=== PATIENT | female | born 1945 | race Two or more races ===

== ENCOUNTER 2019-10-16 20:11 | Emergency (ER) | payer MEDICARE ==
[2019-10-16 20:25] VITALS: TEMP 97.7
--- NOTE | 2019-10-16 20:51 | XR ---
EXAMINATION TYPE: XR ribs LT w pa chest xray DATE OF EXAM: 10/16/2019 COMPARISON: NONE HISTORY: Left-sided rib pain TECHNIQUE: 5 views FINDINGS: There is no heart failure nor confluent pneumonic infiltrate. There is minimal pleural thic kening at the lateral left lung base. There is no pleural effusion or pneumothorax. The left ribs serene ear intact. I see no rib fracture. IMPRESSION: Minimal pleural reaction at the left lung base. No fracture seen.
--- NOTE | 2019-10-16 20:56 | ED ---
Fall HPI - General Chief Complaint: Fall Stated Complaint: FALL Time Seen by Provider: 10/16/19 20:14 Source: patient, EMS Mode of arrival: EMS - History of Present Illness Initial Comments: Patient is a 73-year-old female, history of dementia, presenting to the emergency department after having a slip and fall at home. Patient states she was walking down a trailer and slipped and fell mostly onto her left side. Her only complaint is having left-sided rib pain. Patient states she did not hit her head, no LOC. She does not take thinners. She denies having upper extremit y or lower extremity pain. She does have mild dementia and is currently at baseline according to family. Patient denies any neck pain, chest pain, shortness of breath, abdominal pain. She denies any nausea or vomiting. Patient did have 4 mg of Zofran and 15 mg of Toradol and the EMS prior to arrival. She has no further complaints at this time. Upon arrival to the ER, her vital signs are stable. Review of Systems ROS Statement: Those systems with pertinent positive or pertinent negative responses have been documented in the HPI. ROS Other: All systems not noted in ROS Statement are negative. Past Medical History Past Medical History: Dementia, Hypertension History of Any Multi-Drug Resistant Organisms: None Reported Past Surgical History: Tonsillectomy Past Psychological History: No Psychological Hx Reported Smoking Status: Current some day smoker Past Alcohol Use History: Occasional Past Drug Use History: None Reported General Exam - General Exam Comments Initial Comments: GENERAL: Well-appearing, well-nourished and in no acute distress. HEAD: Atraumatic, normocephalic. EYES: Pupils equal round and reactive to light, extraocular movements intact, sclera anicteric, conjunctiva are normal. ENT: TMs normal, nares patent, oropharynx clear without exudates. Moist mucous membranes. NECK: Patient arrived in c-collar. No midline tenderness. C-collar was removed, full, pain-free range of motion. Supple without lymphadenopathy or JVD. LUNGS: Breath sounds clear to auscultation bilaterally and equal. No wheezes rales or rhonchi. Mild pain with palpation of the left lateral ribs. HEART: Regular rate and rhythm without murmurs, rubs or gallops. ABDOMEN: Soft, nontender, normoactive bowel sounds. No guarding, no rebound. No masses appreciated. : Deferred EXTREMITIES: No pain with palpation of the upper or lower extremities. Full, normal range of motion. No pitting or edema. No clubbing or cyanosis. NEUROLOGICAL: Cranial nerves II through XII grossly intact. Normal speech, normal gait. PSYCH: Normal mood, normal affect. SKIN: Warm, Dry, normal turgor, no rashes or lesions noted. Limitations: no limitations Course Vital Signs 10/16/19 10/16/19 20:13 21:09 Temperature 97.7 F 97.7 F Pulse Rate 96 72 Respiratory 17 18 Rate Blood Pressure 155/88 167/94 O2 Sat by Pulse 97 97 Oximetry Medical Decision Making - Medical Decision Making Patient is a 73-year-old female presenting after a slip and fall at her house. Her only complaint was left-sided rib pain. She did not hit her head, no LOC, no thinners. X-rays left ribs show no acute fractures, lungs appear normal. I discussed these findings with the patient and her and that this is most likely a rib contusion. She may use heat and/or ice the area as well as Tylenol or ibuprofen for discomfort. They are in agreement with this plan of care. She is stable for discharge. Return parameters were discussed with the patient and her and they both verbalized understanding. Case discussed with Dr. Brian pringle. Disposition Clinical Impression: Fall, Contusion of rib on left side Disposition: HOME SELF-CARE Condition: Stable Instructions (If sedation given, give patient instructions): Rib Contusion (ED) Additional Instructions: Please return to the Emergency Department if symptoms worsen or any other concerns. Use heat and/or ice to the area as well as Tylenol or ibuprofen for discomfort. Follow up with PCP if symptoms persist for more than 2-3 weeks. Is patient prescribed a controlled substance at d/c from ED?: No Referrals: Gallito Miller MD [Primary Care Provider] - 1-2 days
[2019-10-16 21:16] VITALS: BP 167/94; PULSE 72; RESP 18
== END 2019-10-16 21:19 | disposition home or self-care (01) ==
LOC: EC 20:11
DX: S20.212A Contusion of left front wall of thorax, initial encounter (principal); F17.200 Nicotine dependence, unspecified, uncomplicated; W01.0XXA Fall on same level from slipping, tripping and stumbling without subsequent striking against object, initial encounter; Y93.01 Activity, walking, marching and hiking; Y92.009 Unspecified place in unspecified non-institutional (private) residence as the place of occurrence of the external cause
CPT/HCPCS: 99283

== ENCOUNTER 2019-10-19 23:21 | Inpatient (IN) | payer MEDICARE ==
[2019-10-20 00:05] LABS: Basophils % (A) 0 %; Eosinophils % (A) 0 %; HGB 14.2 gm/dL (11.4-16.0); Lymphocytes # (A) 0.9 k/uL (1.0-4.8); Lymphocytes % (A) 7 %; MCH 30.1 pg (25.0-35.0); MCHC 32.3 g/dL (31.0-37.0); Mean Platelet Volume 9.1; Monocytes # (A) 0.8 k/uL (0-1.0); Monocytes % (A) 6 %; Neutrophils # (A) 11.1 k/uL (1.3-7.7); Neutrophils % (A) 85 %; Platelet Count 176 k/uL (150-450); RBC 4.72 m/uL (3.80-5.40); WBC 13.1 k/uL (3.8-10.6)
--- NOTE | 2019-10-20 00:06 | ED ---
General Adult HPI - General Chief complaint: Shortness of Breath Stated complaint: SHIMON, fever Time Seen by Provider: 10/19/19 23:51 Source: patient, family Mode of arrival: ambulatory Limitations: altered mental status - History of Present Illness Initial comments: This patient is a 73-year-old woman with history of some underlying dementia who presents to be evaluated for cough and fever. Most of the history comes from the patient's who states that over the past 2-3 days he has noted that his has developed a cough and also he notes a rattling sound to her breathing. Prior to this she had had a fall and struck the left side of her c hest wall, and was seen here related to that. In addition, the patient had developed a fever tonight to 101. The patient is currently denying pain and dyspnea. -: days(s) Location: chest Radiation: non-radiation Severity scale (1-10): 0 Improves with: none Worsens with: none Associated Symptoms: cough, fever/chills Treatments Prior to Arrival: NSAID - Related Data Allergies Allergy/AdvReac Type Severity Reaction Status Date / Time No Known Allergies Allergy Verified 10/19/19 23:31 Review of Systems ROS Statement: Those systems with pertinent positive or pertinent negative responses have been documented in the HPI. ROS Other: All systems not noted in ROS Statement are negative. Limitations: ROS unobtainable due to patients medical condition (Underlying dementia) Constitutional: Reports: as per HPI, fever Respiratory: Reports: cough. Denies: dyspnea, wheezes, hemoptysis Cardiovascular: Denies: chest pain, orthopnea, edema, syncope Gastrointestinal: Denies: abdominal pain, vomiting, diarrhea Genitourinary: Denies: dysuria Musculoskeletal: Denies: back pain Skin: Denies: rash Neurological: Denies: headache, weakness Past Medical History Past Medical History: Dementia, Hypertension History of Any Multi-Drug Resistant Organisms: None Reported Past Surgical History: Tonsillectomy Past Psychological History: No Psychological Hx Reported Smoking Status: Current some day smoker Past Alcohol Use History: Occasional Past Drug Use History: None Reported General Exam Limitations: altered mental status General appearance: alert, in no apparent distress Head exam: Present: atraumatic, normocephalic Eye exam: Present: normal appearance. Absent: scleral icterus, conjunctival injection ENT exam: Present: normal oropharynx Neck exam: Present: normal inspection, full ROM. Absent: meningismus Respiratory exam: Present: rhonchi. Absent: respiratory distress, wheezes, rales, stridor, accessory muscle use, decreased breath sounds, prolonged expiratory Cardiovascular Exam: Present: tachycardia, systolic murmur. Absent: diastolic murmur, rubs, gallop GI/Abdominal exam: Present: soft. Absent: distended, tenderness, guarding, rebound, rigid, mass Extremities exam: Present: normal inspection, normal capillary refill. Absent: pedal edema, calf tenderness Back exam: Present: normal inspection. Absent: CVA tenderness (R), CVA tenderness (L) Neurological exam: Present: alert Skin exam: Present: warm, dry, intact, normal color. Absent: rash Course Vital Signs 10/19/19 10/20/19 23:23 00:29 Temperature 98 F 98.2 F Pulse Rate 108 H 97 Respiratory 18 18 Rate Blood Pressure 162/80 134/82 O2 Sat by Pulse 94 L 95 Oximetry EKG Findings - EKG Results: EKG: interpreted by ERMMickey, sinus rhythm (With multiple PVCs, rate approximately 100 bpm), normal axis, normal QRS - Blocks, [place], Hypertrophy, ST Abn: Repolarization changes or abnormalities: nonspecific abnormality, ST segment, and/or T wave Medical Decision Making - Lab Data Result diagrams: 10/19/19 23:52 10/19/19 23:52 Lab Results 10/19/19 10/19/19 10/19/19 Range/Units 23:52 23:52 23:52 WBC 13.1 H (3.8-10.6) k/uL RBC 4.72 (3.80-5.40) m/uL Hgb 14.2 (11.4-16.0) gm/dL Hct 44.0 (34.0-46.0) % MCV 93.0 (80.0-100.0) fL MCH 30.1 (25.0-35.0) pg MCHC 32.3 (31.0-37.0) g/dL RDW 12.0 (11.5-15.5) % Plt Count 176 (150-450) k/uL Neutrophils % 85 % Lymphocytes % 7 % Monocytes % 6 % Eosinophils % 0 % Basophils % 0 % Neutrophils # 11.1 H (1.3-7.7) k/uL Lymphocytes # 0.9 L (1.0-4.8) k/uL Monocytes # 0.8 (0-1.0) k/uL Eosinophils # 0.0 (0-0.7) k/uL Basophils # 0.0 (0-0.2) k/uL PT 10.2 (9.0-12.0) sec INR 1.0 (<1.2) APTT 22.7 (22.0-30.0) sec Sodium 131 L (137-145) mmol/L Potassium 3.7 (3.5-5.1) mmol/L Chloride 103 (98-107) mmol/L Carbon Dioxide 21 L (22-30) mmol/L Anion Gap 7 mmol/L BUN 14 (7-17) mg/dL Creatinine 0.63 (0.52-1.04) mg/dL Est GFR (CKD-EPI)AfAm >90 (>60 ml/min/1.73 sqM) Est GFR (CKD-EPI)NonAf 90 (>60 ml/min/1.73 sqM) Glucose 153 H (74-99) mg/dL Plasma Lactic Acid Vick (0.7-2.0) mmol/L Calcium 8.8 (8.4-10.2) mg/dL Total Bilirubin 1.7 H (0.2-1.3) mg/dL AST 42 H (14-36) U/L ALT 35 H (4-34) U/L Alkaline Phosphatase 95 (38-126) U/L Troponin I (0.000-0.034) ng/mL NT-Pro-B Natriuret Pep pg/mL Total Protein 6.3 (6.3-8.2) g/dL Albumin 3.4 L (3.5-5.0) g/dL 10/19/19 10/19/19 10/19/19 Range/Units 23:52 23:52 23:52 WBC (3.8-10.6) k/uL RBC (3.80-5.40) m/uL Hgb (11.4-16.0) gm/dL Hct (34.0-46.0) % MCV (80.0-100.0) fL MCH (25.0-35.0) pg MCHC (31.0-37.0) g/dL RDW (11.5-15.5) % Plt Count (150-450) k/uL Neutrophils % % Lymphocytes % % Monocytes % % Eosinophils % % Basophils % % Neutrophils # (1.3-7.7) k/uL Lymphocytes # (1.0-4.8) k/uL Monocytes # (0-1.0) k/uL Eosinophils # (0-0.7) k/uL Basophils # (0-0.2) k/uL PT (9.0-12.0) sec INR (<1.2) APTT (22.0-30.0) sec Sodium (137-145) mmol/L Potassium (3.5-5.1) mmol/L Chloride (98-107) mmol/L Carbon Dioxide (22-30) mmol/L Anion Gap mmol/L BUN (7-17) mg/dL Creatinine (0.52-1.04) mg/dL Est GFR (CKD-EPI)AfAm (>60 ml/min/1.73 sqM) Est GFR (CKD-EPI)NonAf (>60 ml/min/1.73 sqM) Glucose (74-99) mg/dL Plasma Lactic Acid Vick 1.0 (0.7-2.0) mmol/L Calcium (8.4-10.2) mg/dL Total Bilirubin (0.2-1.3) mg/dL AST (14-36) U/L ALT (4-34) U/L Alkaline Phosphatase (38-126) U/L Troponin I <0.012 (0.000-0.034) ng/mL NT-Pro-B Natriuret Pep 753 pg/mL Total Protein (6.3-8.2) g/dL Albumin (3.5-5.0) g/dL Disposition Clinical Impression: Pneumonia, Delirium, Pleural effusion Disposition: ADMITTED IP TO THIS HOSP Condition: Fair Is patient prescribed a controlled substance at d/c from ED?: No Referrals: Gallito Miller MD [Primary Care Provider] - 1-2 days
[2019-10-20 00:15] LABS: Partial Thromboplastin Time 22.7 sec (22.0-30.0); Prothrombin Time 10.2 sec (9.0-12.0)
[2019-10-20 00:18] LABS: ALT 35 U/L (4-34); AST 42 U/L (14-36); African American GFR (CKD) >90 (>60 ml/min/1.73 sqM); Albumin 3.4 g/dL (3.5-5.0); Alkaline Phosphatase 95 U/L (38-126); Anion Gap 7 mmol/L; Blood Urea Nitrogen 14 mg/dL (7-17); Calcium 8.8 mg/dL (8.4-10.2); Carbon Dioxide 21 mmol/L (22-30); Chloride 103 mmol/L (98-107); Glucose 153 mg/dL (74-99); Non-African American GFR(CKD) 90 (>60 ml/min/1.73 sqM); Potassium 3.7 mmol/L (3.5-5.1); Sodium 131 mmol/L (137-145); Total Bilirubin 1.7 mg/dL (0.2-1.3); Total Protein 6.3 g/dL (6.3-8.2)
--- NOTE | 2019-10-20 00:34 | XR ---
EXAMINATION TYPE: XR chest 2V DATE OF EXAM: 10/20/2019 COMPARISON: 10/16/2019 HISTORY: Difficulty breathing TECHNIQUE: 2 views FINDINGS: There is some blunting left costophrenic angle. There is coarsening of interstitial marking s. Heart size is normal. Thoracic aorta is atheromatous. There are no hilar masses. There is osteopen ia. There is no gross heart failure. IMPRESSION: There is increased pleural reaction and fluid and subsegmental atelectasis at the left anahy ng base compared to old exam 4 days ago. No heart failure seen. There is probably some pulmonary fibr osis.
[2019-10-20] MEDS ORDERED: PNEUMONIA PROTOCOL UTILIZED 1 EACH MISC PO PRN (01:42)
[2019-10-20] MEDS ORDERED: AZITHROMYCIN 500 MG in SODIUM CHLORIDE 0.9% 250 ML IVPB STA (01:42)
[2019-10-20] MEDS: SODIUM CHLORIDE 0.9% 1,000 ML IV SCH ×3 (02:41→17:35)
[2019-10-20] MEDS: BUDESONIDE 1 MG/2 ML NEBU INHALATION SCH ×2 (12:26→19:41)
[2019-10-20] MEDS: IPRATROPIUM-ALBUTEROL 3 ML NEB INHALATION SCH ×4 (12:26→23:55)
[2019-10-20] MEDS: NICOTINE 14MG/24HR PATCH TRANSDERM SCH (13:06)
[2019-10-20] MEDS: guaiFENesin 600 MG TABLET.ER PO SCH ×2 (13:06→21:11)
[2019-10-20] MEDS: ENOXAPARIN 40 MG/0.4 ML SYRINGE SQ SCH (13:06)
[2019-10-20] MEDS ORDERED: CALCIUM CARBONATE 500 MG CHEWABLE PO PRN (16:26)
[2019-10-20] MEDS ORDERED: MAGNESIUM HYDROXIDE 2,400 MG/10 ML CUP PO PRN (16:26)
[2019-10-20] MEDS ORDERED: ONDANSETRON 4 MG/2 ML VIAL IVP PRN (16:26)
[2019-10-20] MEDS ORDERED: NALOXONE 0.4 MG/ML 1 ML VIAL IV PRN (16:26)
[2019-10-20] MEDS ORDERED: LACTULOSE 20 GM/30 ML CUP PO PRN (16:26)
[2019-10-20] MEDS ORDERED: MAG HYDROX/AL HYDROX/SIMETH 30 ML CUP PO PRN (16:26)
--- NOTE | 2019-10-20 16:29 | P.HPIM ---
History of Present Illness H&P Date: 10/20/19 Chief Complaint: Chest gurgling History of presenting complaint: This is a 73-year-old patient of Dr. Gallito Miller. Most of the history is obtained by the at the bedside. Patient has dementia and only offer so much of the history. Able to recognize family members. Able to get around the house. Patient is a long-standing smoker. The last to 3 days noticed that the patient was having congestion in the chest. With some gurgling sound. Unable to expectorate. The cough is present. 2 feeding was present. Some wheezing. Decreased appetite. Found to have a pneumonia in the ER. Started antibiotics. Patient doesn't take any medications at home Review of systems: GEN.: Tired decreased appetite EYES: None HEENT: None NECK: None RESPIRATORY: As above CARDIOVASCULAR: None GASTROINTESTINAL: None GENITOURINARY: None MUSCULOSKELETAL: None LYMPHATICS: None HEMATOLOGICAL: None PSYCHIATRY: Forgetful NEUROLOGICAL: None Past medical history to include: Dementia, hypertension Social history: Lives with her . Long-standing smoker. Alcohol occasionally. Family history: Patient does not remember Physical examination: VITAL SIGNS: 98, 108, 18, 162/80, 94% on room air GENERAL: 29.9, laying in bed awake. EYES: Pupils equal. Conjunctiva normal. HEENT: External appearance of nose and ears normal, oral cavity grossly normal. NECK: JVD not raised; masses not palpable. HEART: First and second heart sounds are normal; no edema. LUNGS:[ Respiratory rate increased, decreased breaths on some exploring crackles wheezing. ABDOMEN: Soft, nontender, liver spleen not palpable, no masses palpable. PSYCH: [Patient nose and nails does not know where she is otherwise she is here able to answer simple questions. NEUROLOGICAL: Cranial nerves grossly intact; no facial asymmetry, power and sensation grossly intact. LYMPHATICS: No lymph nodes palpable in the axilla and neck INVESTIGATIONS, reviewed in the clinical context: White count 13.1 hemoglobin 14.2 potassium 3.7 creatinine 0.63 sodium 131 Troponin I 0.012 proBNP 753 Albumin 3.4 EKG tracing personally reviewed by me-normal sinus rhythm with some PVCs Chest x-ray film personally reviewed by me-infiltrates, chronic changes cannot be ruled out Assessment: -Pneumonia suspect gram-negative organism, POA -Acute COPD exacerbation and a current smoker -Chronic nicotine dependence patient's cigarette smoker -Sepsis from pneumonia -Severe cognitive impairment from Alzheimer's dementia -Mild hyponatremia -Hypoalbuminemia has an acute phase reactant no clinical evidence of malnutrition -Essential hypertension Plan: Care was discussed at length with the at the bedside. Patient started on ceftriaxone and Zithromax. Lovenox for DT prophylaxis. DuoNeb, inhaled Pulmicort and IV Solu-Medrol. Nicotine patch. IV fluids. We'll add lisinopril hydrochlorothiazide twice a day. Past Medical History Past Medical History: Dementia, Hypertension History of Any Multi-Drug Resistant Organisms: None Reported Past Surgical History: Tonsillectomy Past Anesthesia/Blood Transfusion Reactions: No Reported Reaction Past Psychological History: No Psychological Hx Reported Smoking Status: Current some day smoker Past Alcohol Use History: Occasional Past Drug Use History: None Reported Medications and Allergies Home Medications Medication Instructions Recorded Confirmed Type No Known Home Medications 10/20/19 10/20/19 History Allergies Allergy/AdvReac Type Severity Reaction Status Date / Time No Known Allergies Allergy Verified 10/20/19 08:28 Physical Exam Vitals: Vital Signs Temp Pulse Pulse Resp BP BP Pulse Ox 10/20/19 09:42 98.1 F 89 16 151/70 97 10/20/19 04:20 98.2 F 96 20 144/77 95 10/20/19 02:46 98.4 F 107 H 19 158/94 94 L 10/20/19 00:29 98.2 F 97 18 134/82 95 10/19/19 23:23 98 F 108 H 18 162/80 94 L Intake and Output 10/19/19 10/20/19 10/20/19 22:59 06:59 14:59 Other: Weight 83.915 kg Results CBC & Chem 7: 10/19/19 23:52 10/19/19 23:52 Labs: Abnormal Lab Results - Last 24 Hours (Table) 10/19/19 10/19/19 Range/Units 23:52 23:52 WBC 13.1 H (3.8-10.6) k/uL Neutrophils # 11.1 H (1.3-7.7) k/uL Lymphocytes # 0.9 L (1.0-4.8) k/uL Sodium 131 L (137-145) mmol/L Carbon Dioxide 21 L (22-30) mmol/L Glucose 153 H (74-99) mg/dL Total Bilirubin 1.7 H (0.2-1.3) mg/dL AST 42 H (14-36) U/L ALT 35 H (4-34) U/L Albumin 3.4 L (3.5-5.0) g/dL Thrombosis Risk Factor Assmnt - Choose All That Apply Any of the Below Risk Factors Present?: No Each Risk Factor Represents 2 Points: Age 61-74 years Thrombosis Risk Factor Assessment Total Risk Factor Score: 2 Thrombosis Risk Factor Assessment Level: Low Risk
[2019-10-20 17:10] LABS: Glucose,Whole Blood 116 mg/dL (75-99)
[2019-10-20] MEDS: INSULIN ASPART (NovoLOG) 100 UNIT/ML VIAL SQ SCH (17:30)
[2019-10-20] MEDS: methylPREDNISolone SOD SUCCI 40 MG/ML 1 ML VIAL IV SCH ×2 (17:34→23:20)
[2019-10-20 20:36] LABS: Glucose,Whole Blood 163 mg/dL (75-99)
[2019-10-20] MEDS: ACETAMINOPHEN TAB 325 MG TAB PO PRN (21:11)
[2019-10-20] MEDS: MELATONIN 3 MG TABLET PO PRN (21:11)
[2019-10-20] MEDS: AZITHROMYCIN 500 MG TAB PO SCH (21:11)
[2019-10-20] MEDS: ALPRAZolam 0.25 MG TAB PO PRN (21:11)
[2019-10-21] MEDS: IPRATROPIUM-ALBUTEROL 3 ML NEB INHALATION SCH ×6 (03:41→23:47)
[2019-10-21] MEDS: guaiFENesin 600 MG TABLET.ER PO SCH ×2 (07:30→20:47)
[2019-10-21] MEDS: NICOTINE 14MG/24HR PATCH TRANSDERM SCH (07:31)
[2019-10-21] MEDS: SODIUM CHLORIDE 0.9% 1,000 ML IV SCH (07:31)
[2019-10-21] MEDS: methylPREDNISolone SOD SUCCI 40 MG/ML 1 ML VIAL IV SCH ×3 (07:31→23:28)
[2019-10-21] MEDS: ENOXAPARIN 40 MG/0.4 ML SYRINGE SQ SCH (07:31)
[2019-10-21 07:53] LABS: Glucose,Whole Blood 152 mg/dL (75-99)
[2019-10-21] MEDS: INSULIN ASPART (NovoLOG) 100 UNIT/ML VIAL SQ SCH ×3 (07:59→16:54)
[2019-10-21] MEDS: BUDESONIDE 1 MG/2 ML NEBU INHALATION SCH ×2 (08:14→21:08)
[2019-10-21 09:24] LABS: AST 31 U/L (14-36); African American GFR (CKD) >90 (>60 ml/min/1.73 sqM); Albumin 3.2 g/dL (3.5-5.0); Alkaline Phosphatase 88 U/L (38-126); Anion Gap 8 mmol/L; Blood Urea Nitrogen 16 mg/dL (7-17); Calcium 8.7 mg/dL (8.4-10.2); Carbon Dioxide 23 mmol/L (22-30); Chloride 107 mmol/L (98-107); Glucose 253 mg/dL (74-99); Non-African American GFR(CKD) >90 (>60 ml/min/1.73 sqM); Potassium 3.9 mmol/L (3.5-5.1); Sodium 138 mmol/L (137-145); Total Bilirubin 0.9 mg/dL (0.2-1.3); Total Protein 6.1 g/dL (6.3-8.2)
[2019-10-21 09:38] LABS: ALT 49 U/L (4-34)
--- NOTE | 2019-10-21 11:48 | P.PN ---
Subjective on-call hospitalist covering for Dr. mahan From records This is a 73-year-old patient of Dr. Gallito Miller. Most of the history is obtained by the at the bedside. Patient has dementia and only offer so much of the history. Able to recognize family members. Able to get around the house. Patient is a long-standing smoker. The last to 3 days noticed that the patient was having congestion in the chest. With some gurgling sound. Unable to expectorate. The cough is present. 2 feeding was present. Some wheezing. Decreased appetite. Found to have a pneumonia in the ER. Started antibiotics. Patient doesn't take any medications at home Subjective 10/21/2019 patient was sitting in chair not in distress, she can talk freely with no difficulty. However patient scan of poor historian due to her dementia and I talked to the daughter Mrs. Kamara at bedside. Patient admitted with respiratory symptoms and she still complaining of from cough and with little mucousy phlegm and left lateral chest pain increased with coughing. No dyspnea at rest.she is saturating 90s on 2 L oxygen. No other complaints. She smokes about 1 pack per day, patient is counseled and she does not want to quit however she is getting nicotine patch while she is in- house. No alcohol or illicit drugs. Patient states that she fell a few days ago while she was walking out side in [place] whether, no dizziness or syncope. we will order left rib x-ray. Pulmonary team already consulted. Patient is currently on Zithromax and Rocephin and she is on normal saline at 50 mL per hour. We will order physical therapy evaluation Review of systems CONSTITUTIONAL: No fever, no malaise, no fatigue. HEENT: No recent visual problems or hearing problems. Denied any sore throat. CARDIOVASCULAR: No orthopnea, PND, no palpitations, no syncope. GASTROINTESTINAL: No diarrhea, no nausea, no vomiting, no abdominal pain. Normoactive bowel sounds. NEUROLOGICAL: No headaches, no weakness, no numbness. HEMATOLOGICAL: Denies any bleeding or petechiae. GENITOURINARY: Denies any burning micturition, frequency, or urgency. MUSCULOSKELETAL/RHEUMATOLOGICAL: Denies any joint pain, swelling, or any muscle pain. ENDOCRINE: Denies any polyuria or polydipsia. Active Medications Generic Name Dose Route Start Last Admin Trade Name Zackeryq PRN Reason Stop Dose Admin Acetaminophen 650 mg 10/20/19 16:26 10/20/19 21:11 Tylenol Tab PO 650 mg Q6HR PRN Administration Mild Pain or Fever > 100.5 Al Hydroxide/Mg Hydroxide 15 ml 10/20/19 16:26 Maalox PO Q6HR PRN Indigestion Albuterol/Ipratropium 3 ml 10/20/19 12:00 10/21/19 11:21 Duoneb 0.5 Mg-3 Mg/3 Ml Soln INHALATION 3 ml RT-Q4H PHYLICIA Administration Alprazolam 0.25 mg 10/20/19 16:26 10/20/19 21:11 Xanax PO 0.25 mg Q6HR PRN Administration Anxiety Azithromycin 500 mg 10/20/19 21:00 10/20/19 21:11 Zithromax PO 500 mg Q24H PHYLICIA Administration Budesonide 1 mg 10/20/19 11:56 10/21/19 08:14 Pulmicort INHALATION 1 mg RT-BID PHYLICIA Administration Calcium Carbonate/Glycine 1,000 mg 10/20/19 16:26 Tums PO Q4HR PRN Dyspepsia Enoxaparin Sodium 40 mg 10/20/19 12:00 10/21/19 07:31 Lovenox SQ 40 mg DAILY PHYLICIA Administration Guaifenesin 1,200 mg 10/20/19 12:00 10/21/19 07:30 Mucinex PO 1,200 mg Q12HR PHYLICIA Administration Ceftriaxone Sodium 1 gm/ 50 mls @ 100 mls/hr 10/20/19 12:00 10/21/19 07:30 Sodium Chloride IVPB 10/24/19 12:01 100 mls/hr Q24HR PHYLICIA Administration Sodium Chloride 1,000 mls @ 50 mls/hr 10/20/19 16:30 10/21/19 07:31 Saline 0.9% IV 50 mls/hr .Q20H PHYLICIA Administration Insulin Aspart 0 unit 10/20/19 17:30 10/21/19 07:59 Novolog SQ 1 unit AC-TID PHYLICIA Administration Protocol Lactulose 20 gm 10/20/19 16:26 Cephulac PO DAILY PRN Constipation Magnesium Hydroxide 2,400 mg 10/20/19 16:26 Milk Of Magnesia PO DAILY PRN Constipation Melatonin 3 mg 10/20/19 16:26 10/20/19 21:11 Melatonin PO 3 mg HS PRN Administration Insomnia Methylprednisolone Sodium Succinate 40 mg 10/20/19 16:30 10/21/19 07:31 Solu-Medrol IV 40 mg Q8HR PHYLICIA Administration Miscellaneous Information 1 each 10/20/19 01:42 Pneumonia Protocol Utilized PO ONCE PRN Per Protocol Naloxone HCl 0.2 mg 10/20/19 16:26 Narcan IV Q2M PRN Opioid Reversal Nicotine 1 patch 10/20/19 12:00 10/21/19 07:31 Habitrol 14mg/24hr Patch TRANSDERM 1 patch DAILY PHYLICIA Administration Ondansetron HCl 4 mg 10/20/19 16:26 Zofran IVP Q8HR PRN Nausea And Vomiting Objective - Vital Signs Vital signs: Vital Signs Temp 98.0 F 10/21/19 07:00 Pulse 78 10/21/19 11:35 Resp 20 10/21/19 07:30 BP 138/71 10/21/19 07:00 Pulse Ox 94 L 10/21/19 07:00 Intake & Output 10/20/19 10/21/19 10/21/19 18:59 06:59 18:59 Weight 73.5 kg Other: Voiding Method Toilet # Voids 6 1 - Exam GENERAL: The patient is alert and oriented x3, not in any acute distress. Well developed, well nourished. HEENT: Pupils are round and equally reacting to light. EOMI. No scleral icterus. No conjunctival pallor. Normocephalic, atraumatic. No pharyngeal erythema. No thyromegaly. CARDIOVASCULAR: S1 and S2 present. No murmurs, rubs, or gallops. -PULMONARY: Chest is clear to auscultation, no wheezing or crackles. left lateral side crepitation ABDOMEN: Soft, nontender, nondistended, normoactive bowel sounds. No palpable organomegaly. MUSCULOSKELETAL: No joint swelling or deformity. EXTREMITIES: No cyanosis, clubbing, or pedal edema. NEUROLOGICAL: Gross neurological examination did not reveal any focal deficits. SKIN: No rashes. no petechiae. - Labs CBC & Chem 7: 10/19/19 23:52 10/21/19 08:44 Labs: Abnormal Lab Results - Last 24 Hours (Table) 10/20/19 10/20/19 10/21/19 Range/Units 17:08 20:25 07:51 Glucose (74-99) mg/dL POC Glucose (mg/dL) 116 H 163 H 152 H (75-99) mg/dL ALT (4-34) U/L Total Protein (6.3-8.2) g/dL Albumin (3.5-5.0) g/dL 10/21/19 Range/Units 08:44 Glucose 253 H (74-99) mg/dL POC Glucose (mg/dL) (75-99) mg/dL ALT 49 H (4-34) U/L Total Protein 6.1 L (6.3-8.2) g/dL Albumin 3.2 L (3.5-5.0) g/dL Microbiology - Last 24 Hours (Table) 10/19/19 23:52 Blood Culture - Preliminary Blood No Growth after 24 hours Assessment and Plan Assessment: -Pneumonia suspect gram-negative organism, POA -fall, few days ago with left sided chest pain. Rule out rib fracture -mildAcute COPD exacerbation and a current smoker -Chronic nicotine dependence patient's cigarette smoker -Sepsis from pneumonia. Patient needs 3 of SIRS criteriawith leukocytosis, tachypnea and tachycardia -Alzheimer's dementia. -Mild hyponatremia, improved -Hypoalbuminemia has an acute phase reactant no clinical evidence of malnutrition -Essential hypertension Plan: this is a pleasant 73 years old female who presents with pneumonia. Patient started on ceftriaxone and Zithromax. Lovenox for DT prophylaxis. DuoNeb, inhaled Pulmicort and IV Solu-Medrol. Nicotine patch. IV fluids. We'll add lisinopril hydrochlorothiazide twice a day. pulmonary consult Labs and medication were reviewed.. Continue same treatment. Continue with symptomatic treatment. Resume home medication. Monitor lytes and vitals. DVT and GI prophylaxis. Further recommendations of the clinical course of the patient DVT prophylaxis: Subcutaneous Lovenox GI Prophylaxis: Pepcid PT/OT: Pending Prognosis is guarded
[2019-10-21 11:49] LABS: Glucose,Whole Blood 165 mg/dL (75-99)
--- NOTE | 2019-10-21 15:25 | XR ---
EXAMINATION TYPE: Left rib series DATE OF EXAM: 10/21/2019 COMPARISON: NONE HISTORY: 73-year-old female with fall a few days ago, pain TECHNIQUE: 4 views FINDINGS: Multiple left lateral rib fractures are present. Segmental fractures involving posterior and lateral fifth, sixth, seventh, eighth, and ninth ribs. Additional lateral fractures of the third and fourth r ibs. There is very mild displacement and mild angulation. IMPRESSION: 1. Segmental fractures of the left fifth through ninth ribs. This is at 5 consecutive levels which wo uld qualify as flail chest. 2. Additional fractures of the left lateral third and fourth ribs. 3. Small pleural effusion versus pneumothorax with prominent left basilar atelectasis or contusion/in filtrate. A [place] level critical message alert has been initiated for Darian Sheet via the [employer] Results System on 10/21/2019 3:22 PM. This message alert has been sent to Darian Sheet via the preferences provided by the clinician for the receipt of Radiology Critical Findings. Message ID [id number].
[2019-10-21 15:59] LABS: Basophils % (A) 0 %; Eosinophils % (A) 0 %; HCT 45.5 % (34.0-46.0); Hypochromasia Slight; Lymphocytes # (A) 0.9 k/uL (1.0-4.8); Lymphocytes % (A) 11 %; MCH 30.4 pg (25.0-35.0); MCHC 30.8 g/dL (31.0-37.0); Mean Platelet Volume 10.5; Monocytes # (A) 0.2 k/uL (0-1.0); Monocytes % (A) 2 %; Neutrophils # (A) 6.4 k/uL (1.3-7.7); Neutrophils % (A) 86 %; Platelet Count 176 k/uL (150-450); RBC 4.61 m/uL (3.80-5.40); RDW 12.1 % (11.5-15.5); WBC 7.4 k/uL (3.8-10.6)
--- NOTE | 2019-10-21 16:01 | P.CNPUL ---
History of Present Illness Consult date: 10/21/19 Reason for consult: dyspnea, cough, chest pain Chief complaint: Shortness of breath and left-sided chest pain History of present illness: This is a 73-year-old female with the COPD and extensive history of smoking and nicotine use has been actively smoking half to one third pack per day L Que the time she was admitted, she sees Dr. Bullock for primary care activity, patient's family including and daughter is present at the bedside, unable to give detailed history however data has been obtained from the chart and as well as the and daughter patient tripped and fell down and landed on the left side of the chest and brought into the emergency department, initial x-ray revealed presence of subsegmental atelectasis at the left lung base, some early pulmonary fibrosis is noted, possibly developing left lower lobe pneumonia cannot be excluded, today's reviewed chest x-ray has been reviewed, patient noted to have multiple fractures from left fifth to ninth rib, additional third and fourth lateral fractures also noted along with some effusion and atelectasis and developing pneumonia, patient is on 2 L oxygen, saturation is 98%, hemodynamic stable remains afebrile, white cell count is 13,000, her carona virus test is negative, she is being treated with the bronchodilators along with antibiotics, deep breathing exercises incentive spirometry, also getting IV steroids Review of Systems All systems: negative Past Medical History Past Medical History: Dementia, Hypertension History of Any Multi-Drug Resistant Organisms: None Reported Past Surgical History: Tonsillectomy Past Anesthesia/Blood Transfusion Reactions: No Reported Reaction Past Psychological History: No Psychological Hx Reported Smoking Status: Current some day smoker Past Alcohol Use History: Occasional Past Drug Use History: None Reported Medications and Allergies Home Medications Medication Instructions Recorded Confirmed Type No Known Home Medications 10/20/19 10/20/19 History Allergies Allergy/AdvReac Type Severity Reaction Status Date / Time No Known Allergies Allergy Verified 10/20/19 08:28 Physical Exam Vitals: Vital Signs Temp Pulse Pulse Resp BP Pulse Ox 10/21/19 15:00 97.8 F 93 17 146/67 98 10/21/19 11:35 78 10/21/19 11:24 77 10/21/19 08:32 72 10/21/19 08:14 70 10/21/19 07:30 70 20 10/21/19 07:00 98.0 F 103 H 20 138/71 94 L 10/21/19 01:00 97.9 F 70 20 144/74 96 10/20/19 19:54 98.7 F 88 16 147/72 92 L 10/20/19 19:30 78 Intake and Output 10/21/19 10/21/19 10/21/19 06:59 14:59 22:59 Intake Total 980 Balance 980 Intake: Intake, IV Titration 400 Amount Sodium Chloride 0.9% 1, 400 000 ml @ 50 mls/hr IV . Q20H [facility] Rx#:[id number] Oral 580 Other: Voiding Method Toilet # Voids 1 2 Weight 73.5 kg - Constitutional General appearance: average body habitus, cooperative, disheveled, mild distress - EENT Eyes: anicteric sclerae, EOMI, PERRLA, normal appearance ENT: hearing grossly normal, normal oropharynx Ears: bilateral: normal - Neck Neck: normal ROM Carotids: bilateral: upstroke normal - Respiratory Respiratory: bilateral: diminished, rales (At the left base) - Cardiovascular Rhythm: regular Heart sounds: normal: S1, S2 - Gastrointestinal General gastrointestinal: decreased bowel sounds - Integumentary Integumentary: normal turgor - Neurologic Neurologic: CNII-XII intact - Musculoskeletal Musculoskeletal: gait normal, generalized weakness, strength equal bilaterally - Psychiatric Psychiatric: A&O x's 3, appropriate affect, intact judgment & insight Results - Laboratory Findings CBC and BMP: 10/19/19 23:52 10/21/19 08:44 PT/INR, D-dimer PT 10.2 sec (9.0-12.0) 10/19/19 23:52 INR 1.0 (<1.2) 10/19/19 23:52 Abnormal lab findings: Abnormal Labs 10/19/19 10/19/19 10/20/19 23:52 23:52 17:08 WBC 13.1 H Neutrophils # 11.1 H Lymphocytes # 0.9 L Sodium 131 L Carbon Dioxide 21 L Glucose 153 H POC Glucose (mg/dL) 116 H Total Bilirubin 1.7 H AST 42 H ALT 35 H Total Protein Albumin 3.4 L 10/20/19 10/21/19 10/21/19 20:25 07:51 08:44 WBC Neutrophils # Lymphocytes # Sodium Carbon Dioxide Glucose 253 H POC Glucose (mg/dL) 163 H 152 H Total Bilirubin AST ALT 49 H Total Protein 6.1 L Albumin 3.2 L 10/21/19 11:48 WBC Neutrophils # Lymphocytes # Sodium Carbon Dioxide Glucose POC Glucose (mg/dL) 165 H Total Bilirubin AST ALT Total Protein Albumin - Diagnostic Findings Chest x-ray: report reviewed, image reviewed (Finding as noted above) Assessment and Plan Assessment: Status post fall with multiple rib fractures on the left side involving third fourth laterally as well as fifth to ninth rib, Left lower lobe atelectasis Left lower lobe developing pneumonia Small left-sided pleural effusion Baseline severe COPD Advanced dementia and Alzheimer's disease Smoking and nicotine use Plan: Continue supplemental oxygen Continue deep breathing exercise incentive spirometry Increase activity as tolerated Continue bronchodilator, IV steroids, broad-spectrum antibiotics Repeat chest x-ray in 24 to 48 hours Further recommendations pending plan of care as per clinical response of the patient Time with Patient: Greater than 30
[2019-10-21] MEDS: ACETAMINOPHEN TAB 325 MG TAB PO PRN (16:02)
[2019-10-21 16:40] LABS: Glucose,Whole Blood 140 mg/dL (75-99)
[2019-10-21 16:42] LABS: MCV 98.7 fL (80.0-100.0)
--- NOTE | 2019-10-21 17:46 | P.GSCN ---
History of Present Illness Consult date: 10/21/19 Reason for Consult: Fall from standing on 10/16/2019 with left-sided rib fractures and possible flail chest. Requesting physician: Darian E Sheet History of present illness: This is a 73-year-old female patient who is followed by Dr. Gallito Miller on an outpatient basis. She has a past medical history significant for dementia, hypertension, chronic ongoing tobacco dependence and history of early onset coronary artery disease with her dad having a myocardial infarction at age 48. Due to the patient's dementia and her history has been obtained from the patient's who is sitting at her bedside. According to the patient's on 10/16/2019 his was walking down some stairs going outside when she tripped and fell and landed on her left side on cement. He reports that she did not hit her head. She presented to the emergency department on 10/16/2019 with left-sided chest pain, underwent a chest x-ray which demonstrated minimal pleural reaction at her left lung base with no fracture seen. She was subsequently sent home with medical management and pain control. On the evening of 10/19/2019 the patient was brought back to the emergency department here at [facility] with complaints of cough, fever, left-sided chest wall pain and some rattling with her breathing. The patient denies any complaints of pain, shortness of breath, hemoptysis, chills, headache or sputum production at this time. A chest x-ray was completed yesterday 10/20/2019 which showed increase pleural reaction, fluid and segmental atelectasis at the left lung base compared to her old exam 4 days ago. A 12-lead EKG was completed which demonstrated normal sinus rhythm with frequent premature ventricular complexes with a heart rate of 100 BPM. For further evaluation of her left chest wall pain a left rib series x-ray was completed which the report demonstrated segmental fractures of the left fifth through ninth ribs, additional fractures of the left lateral third and fourth ribs, small pleural effusion with prominent left basilar atelectasis or contusion/infiltrate. Due to the findings on the left rib series of possible left flail chest A consult was placed to Dr. Syd Jha from cardiothoracic surgery for further evaluation and treatment recommendations. Review of Systems A 14 point review of systems was completed and was negative except as mentioned in the HPI. Past Medical History Past Medical History: Dementia, Hypertension History of Any Multi-Drug Resistant Organisms: None Reported Past Surgical History: Cholecystectomy, Tonsillectomy Past Anesthesia/Blood Transfusion Reactions: No Reported Reaction Past Psychological History: No Psychological Hx Reported Smoking Status: Current some day smoker Past Alcohol Use History: Occasional Past Drug Use History: None Reported - Past Family History Mother Additional Family Medical History / Comment(s): from a brain aneurysm in her mid 60s. Father Family Medical History: Myocardial Infarction ([place]) Additional Family Medical History / Comment(s): from a myocardial infarction at age 48. Medications and Allergies Home Medications Medication Instructions Recorded Confirmed Type No Known Home Medications 10/20/19 10/20/19 History Allergies Allergy/AdvReac Type Severity Reaction Status Date / Time No Known Allergies Allergy Verified 10/20/19 08:28 Surgical - Exam Vital Signs Temp Pulse Resp BP Pulse Ox 98 F 108 H 18 162/80 94 L 10/19/19 23:23 10/19/19 23:23 10/19/19 23:23 10/19/19 23:23 10/19/19 23:23 This is a pleasant 73-year-old female patient who was seen and examined at her bedside on the fourth floor medical surgical unit. She is currently laying comfortably in bed and is in no acute distress. She is awake, alert and oriented 1 to person. Oxygen saturations are 98% on 2 L nasal cannula. - General Some chest wall tenderness with palpation on the left. well developed, well nourished, no distress, no pain - Eyes PERRL, normal ocular movement - ENT normal pinna, normal nares, normal mucosa, no hearing loss, no congestion, dentures (Uppers) - Neck Neck is supple, no lymphadenopathy. no masses, no bruits, trachea midline, no venous distension - Respiratory Lung sounds are essentially clear to her bilateral upper lobes, few scattered crackles to her bilateral bases. No wheezes, or rhonchi. Respirations are symmetrical and nonlabored. Oxygen saturation 98% on 2 L nasal cannula. Achieving 1500 mL on her incentive spirometry. - Cardiovascular Irregular rhythm with controlled rate. S1 and S2 present, negative for S3, g allop or murmur. No edema present. - Abdomen Abdomen is soft, nontender and nondistended. Active bowel sounds present in all 4 abdominal quadrants. No guarding or rigidity. No organomegaly appreciated. - Genitourinary Deferred - Rectum Deferred - Integumentary Dry scabbed area to her left elbow and to her left knee. no rash, no growths, no abnormal pigmentation - Neurologic normal coordination, normal sensation - Musculoskeletal normal gait, normal posture - Psychiatric Appropriate affect oriented to person Results - Labs 10/21/19 08:44 10/21/19 08:44 Abnormal Lab Results - Last 24 Hours (Table) 10/20/19 10/21/19 10/21/19 Range/Units 20:25 07:51 08:44 MCHC (31.0-37.0) g/dL Lymphocytes # (1.0-4.8) k/uL Glucose 253 H (74-99) mg/dL POC Glucose (mg/dL) 163 H 152 H (75-99) mg/dL ALT 49 H (4-34) U/L Total Protein 6.1 L (6.3-8.2) g/dL Albumin 3.2 L (3.5-5.0) g/dL 10/21/19 10/21/19 10/21/19 Range/Units 08:44 11:48 16:38 MCHC 30.8 L (31.0-37.0) g/dL Lymphocytes # 0.9 L (1.0-4.8) k/uL Glucose (74-99) mg/dL POC Glucose (mg/dL) 165 H 140 H (75-99) mg/dL ALT (4-34) U/L Total Protein (6.3-8.2) g/dL Albumin (3.5-5.0) g/dL Microbiology - Last 24 Hours (Table) 10/19/19 23:52 Blood Culture - Preliminary Blood No Growth after 24 hours Diabetes panel 10/21/19 Range/Units 08:44 Sodium 138 (137-145) mmol/L Potassium 3.9 (3.5-5.1) mmol/L Chloride 107 (98-107) mmol/L Carbon Dioxide 23 (22-30) mmol/L BUN 16 (7-17) mg/dL Creatinine 0.57 (0.52-1.04) mg/dL Glucose 253 H (74-99) mg/dL Calcium 8.7 (8.4-10.2) mg/dL AST 31 (14-36) U/L ALT 49 H (4-34) U/L Alkaline Phosphatase 88 (38-126) U/L Total Protein 6.1 L (6.3-8.2) g/dL Albumin 3.2 L (3.5-5.0) g/dL Calcium panel 10/21/19 Range/Units 08:44 Calcium 8.7 (8.4-10.2) mg/dL Albumin 3.2 L (3.5-5.0) g/dL Pituitary panel 10/21/19 Range/Units 08:44 Sodium 138 (137-145) mmol/L Potassium 3.9 (3.5-5.1) mmol/L Chloride 107 (98-107) mmol/L Carbon Dioxide 23 (22-30) mmol/L BUN 16 (7-17) mg/dL Creatinine 0.57 (0.52-1.04) mg/dL Glucose 253 H (74-99) mg/dL Calcium 8.7 (8.4-10.2) mg/dL Adrenal panel 10/21/19 Range/Units 08:44 Sodium 138 (137-145) mmol/L Potassium 3.9 (3.5-5.1) mmol/L Chloride 107 (98-107) mmol/L Carbon Dioxide 23 (22-30) mmol/L BUN 16 (7-17) mg/dL Creatinine 0.57 (0.52-1.04) mg/dL Glucose 253 H (74-99) mg/dL Calcium 8.7 (8.4-10.2) mg/dL Total Bilirubin 0.9 (0.2-1.3) mg/dL AST 31 (14-36) U/L ALT 49 H (4-34) U/L Alkaline Phosphatase 88 (38-126) U/L Total Protein 6.1 L (6.3-8.2) g/dL Albumin 3.2 L (3.5-5.0) g/dL - Imaging Chest x-ray: report reviewed, image reviewed Additional studies: Rib series x-ray report reviewed Assessment and Plan Assessment: 1. Status post fall from standing with multiple rib fractures on the left involving fifth through ninth ribs, and additional fractures of the left lateral third and fourth ribs 2. Advanced dementia 3. Ongoing chronic nicotine dependence 4. Essential hypertension Plan: The patient was seen and examined at her bedside on the fourth floor medical surgical unit. Her chart and diagnostics were reviewed. Her case was discussed in detail with Dr. Syd Jha from cardiothoracic surgery. The patient is currently hemodynamically stable, denies any complaints of shortness of breath. No surgical intervention is warranted at this time. Repeat 2 view chest x-ray in the morning 10/22/2019. Discussed with the patient's and the patient the importance of smoking cessation. Encourage use of her incentive spirometry 10 times every hour while awake. Pain control per current when necessary orders, we will add Toradol 15 mg IV every 6 hours for additional pain control. Bronchodilators, oxygen management and antibiotic management per pulmonary medicine and primary care service. Thank you Dr. Romeo for this consult and we look for to working with you in the care of this patient. Time with Patient: Greater than 30
[2019-10-21 20:41] LABS: Glucose,Whole Blood 223 mg/dL (75-99)
[2019-10-21] MEDS: MELATONIN 3 MG TABLET PO PRN (20:47)
[2019-10-21] MEDS: FAMOTIDINE 20 MG/2 ML VIAL IV SCH (20:47)
[2019-10-21] MEDS: ALPRAZolam 0.25 MG TAB PO PRN (20:47)
[2019-10-21] MEDS: KETOROLAC 30 MG/ML 1 ML VIAL IVP SCH (20:47)
[2019-10-21] MEDS: AZITHROMYCIN 500 MG TAB PO SCH (20:47)
[2019-10-22] MEDS: IPRATROPIUM-ALBUTEROL 3 ML NEB INHALATION SCH ×5 (03:21→20:54)
[2019-10-22] MEDS: KETOROLAC 30 MG/ML 1 ML VIAL IVP SCH ×4 (05:24→17:04)
[2019-10-22] MEDS: guaiFENesin-DM 100-10MG/5ML 10 ML CUP PO SCH ×3 (05:24→14:39)
[2019-10-22 06:50] LABS: Glucose,Whole Blood 171 mg/dL (75-99)
[2019-10-22] MEDS: methylPREDNISolone SOD SUCCI 40 MG/ML 1 ML VIAL IV SCH (07:51)
[2019-10-22] MEDS: INSULIN ASPART (NovoLOG) 100 UNIT/ML VIAL SQ SCH ×3 (07:51→17:05)
[2019-10-22] MEDS: ENOXAPARIN 40 MG/0.4 ML SYRINGE SQ SCH (07:51)
[2019-10-22] MEDS: CALCIUM CARB-VIT D 500MG-200UN 1 EACH TAB PO SCH ×2 (07:51→17:04)
[2019-10-22] MEDS: FAMOTIDINE 20 MG/2 ML VIAL IV SCH ×2 (07:51→21:46)
[2019-10-22 07:52] LABS: Basophils % (A) 0 %; Eosinophils % (A) 0 %; HCT 42.3 % (34.0-46.0); HGB 13.2 gm/dL (11.4-16.0); Lymphocytes # (A) 0.7 k/uL (1.0-4.8); Lymphocytes % (A) 5 %; MCHC 31.1 g/dL (31.0-37.0); MCV 96.4 fL (80.0-100.0); Mean Platelet Volume 9.4; Monocytes # (A) 0.3 k/uL (0-1.0); Monocytes % (A) 2 %; Neutrophils # (A) 11.8 k/uL (1.3-7.7); Neutrophils % (A) 92 %; Platelet Count 196 k/uL (150-450); RBC 4.39 m/uL (3.80-5.40); RDW 12.1 % (11.5-15.5); WBC 12.8 k/uL (3.8-10.6)
[2019-10-22] MEDS: NICOTINE 14MG/24HR PATCH TRANSDERM SCH (07:52)
[2019-10-22] MEDS: BUDESONIDE 1 MG/2 ML NEBU INHALATION SCH ×2 (07:58→20:54)
[2019-10-22] MEDS: SODIUM CHLORIDE 0.9% 1,000 ML IV SCH (08:15)
--- NOTE | 2019-10-22 09:07 | XR ---
EXAMINATION TYPE: XR chest 2V DATE OF EXAM: 10/22/2019 COMPARISON: 10/22/2019 HISTORY: Shortness of breath TECHNIQUE: Frontal and lateral views of the chest are obtained. FINDINGS: Scattered senescent parenchymal changes noted. Hyperinflation compatible with COPD. Patchy density left lower lobe may reflect contusion or infiltrate of other etiology. Small pleural e ffusion or pleural thickening. Multiple left-sided rib fractures redemonstrated. No obvious pneumotho rax. Heart size is stable. Mediastinal structures are stable and grossly unremarkable. No evidence for hilar prominence. Degenerative changes dorsal spine. IMPRESSION: 1. Patchy density left lower lobe may reflect contusion or infiltrate of other etiology. Small pleura l effusion or pleural thickening. Multiple left-sided rib fractures redemonstrated. No obvious pneumo thorax.
[2019-10-22] MEDS ORDERED: POLYETHYLENE GLYCOL 3350 17 GM POWD.PACK PO PRN (09:27)
--- NOTE | 2019-10-22 09:29 | P.PN ---
Subjective on-call hospitalist covering for Dr. mahan From records This is a 73-year-old patient of Dr. Gallito Miller. Most of the history is obtained by the at the bedside. Patient has dementia and only offer so much of the history. Able to recognize family members. Able to get around the house. Patient is a long-standing smoker. The last to 3 days noticed that the patient was having congestion in the chest. With some gurgling sound. Unable to expectorate. The cough is present. 2 feeding was present. Some wheezing. Decreased appetite. Found to have a pneumonia in the ER. Started antibiotics. Patient doesn't take any medications at home Subjective 10/21/2019 patient was sitting in chair not in distress, she can talk freely with no difficulty. However patient scan of poor historian due to her dementia and I talked to the daughter Mrs. Kamara at bedside. Patient admitted with respiratory symptoms and she still complaining of from cough and with little mucousy phlegm and left lateral chest pain increased with coughing. No dyspnea at rest.she is saturating 90s on 2 L oxygen. No other complaints. She smokes about 1 pack per day, patient is counseled and she does not want to quit however she is getting nicotine patch while she is in- house. No alcohol or illicit drugs. Patient states that she fell a few days ago while she was walking out side in [place] whether, no dizziness or syncope. we will order left rib x-ray. Pulmonary team already consulted. Patient is currently on Zithromax and Rocephin and she is on normal saline at 50 mL per hour. We will order physical therapy evaluation 10/22/2019 patient sitting in chair fully awake and oriented. No distress. No dyspnea.she's on room air saturating 93%. No chest pain or dyspnea. She still have, as of yesterday and she is on Robitussin. Her chest pain is a little better compared to yesterday. Yesterday chest x-ray showing multiple left-sided rib fracture that is consistent with flail chest, cardiothoracic surgeon has been consulted and recommended conservative management, also project consultant on the case. repeat chest x-ray this morning:left lower lobe density suspicious for infiltrate versus contusion, multiple left-sided rib fracture looks the same She is not wheezing some change her Solu-Medrol to prednisone 40 mg daily. She remains on Rocephin and Zithromax. we'll ask for physical therapy evaluation. Review of systems CONSTITUTIONAL: No fever, no malaise, no fatigue. HEENT: No recent visual problems or hearing problems. Denied any sore throat. CARDIOVASCULAR: No orthopnea, PND, no palpitations, no syncope. GASTROINTESTINAL: No diarrhea, no nausea, no vomiting, no abdominal pain. Normoactive bowel sounds. NEUROLOGICAL: No headaches, no weakness, no numbness. HEMATOLOGICAL: Denies any bleeding or petechiae. GENITOURINARY: Denies any burning micturition, frequency, or urgency. MUSCULOSKELETAL/RHEUMATOLOGICAL: Denies any joint pain, swelling, or any muscle pain. ENDOCRINE: Denies any polyuria or polydipsia. Active Medications Generic Name Dose Route Start Last Admin Trade Name Freq PRN Reason Stop Dose Admin Acetaminophen 650 mg 10/20/19 16:26 10/21/19 16:02 Tylenol Tab PO 650 mg Q6HR PRN Administration Mild Pain or Fever > 100.5 Al Hydroxide/Mg Hydroxide 15 ml 10/20/19 16:26 Maalox PO Q6HR PRN Indigestion Albuterol/Ipratropium 3 ml 10/20/19 12:00 10/22/19 07:58 Duoneb 0.5 Mg-3 Mg/3 Ml Soln INHALATION Not Given RT-Q4H [facility] Alprazolam 0.25 mg 10/20/19 16:26 10/21/19 20:47 Xanax PO 0.25 mg Q6HR PRN Administration Anxiety Azithromycin 500 mg 10/20/19 21:00 10/21/19 20:47 Zithromax PO 500 mg Q24H [facility] Administration Budesonide 1 mg 10/20/19 11:56 10/22/19 07:58 Pulmicort INHALATION Not Given RT-BID [facility] Calcium Carbonate 1 each 10/22/19 07:30 10/22/19 07:51 Oscal 500+D PO 1 each BID-W/MEALS [facility] Administration Enoxaparin Sodium 40 mg 10/20/19 12:00 10/22/19 07:51 Lovenox SQ 40 mg DAILY [facility] Administration Famotidine 20 mg 10/21/19 21:00 10/22/19 07:51 Pepcid IV 20 mg Q12HR [facility] Administration Guaifenesin/Dextromethorphan 10 ml 10/21/19 23:45 10/22/19 07:52 Robitussin Dm PO 10 ml Q8H [facility] Administration Ceftriaxone Sodium 1 gm/ 50 mls @ 100 mls/hr 10/20/19 12:00 10/22/19 07:52 Sodium Chloride IVPB 10/24/19 12:01 100 mls/hr Q24HR [facility] Administration Sodium Chloride 1,000 mls @ 50 mls/hr 10/20/19 16:30 10/22/19 08:15 Saline 0.9% IV Not Given .Q20H [facility] Insulin Aspart 0 unit 10/20/19 17:30 10/22/19 07:51 Novolog SQ 2 unit AC-TID [facility] Administration Protocol Ketorolac Tromethamine 15 mg 10/21/19 18:00 10/22/19 07:01 Toradol IVP 10/25/19 17:46 Not Given Q6HR [facility] Lactulose 20 gm 10/20/19 16:26 10/22/19 08:03 Cephulac PO 20 gm DAILY PRN Administration Constipation Magnesium Hydroxide 2,400 mg 10/20/19 16:26 Milk Of Magnesia PO DAILY PRN Constipation Melatonin 3 mg 10/20/19 16:26 10/21/19 20:47 Melatonin PO 3 mg HS PRN Administration Insomnia Methylprednisolone Sodium Succinate 40 mg 10/20/19 16:30 10/22/19 07:51 Solu-Medrol IV 40 mg Q8HR [facility] Administration Miscellaneous Information 1 each 10/20/19 01:42 Pneumonia Protocol Utilized PO ONCE PRN Per Protocol Naloxone HCl 0.2 mg 10/20/19 16:26 Narcan IV Q2M PRN Opioid Reversal Nicotine 1 patch 10/20/19 12:00 10/22/19 07:52 Habitrol 14mg/24hr Patch TRANSDERM 1 patch DAILY [facility] Administration Ondansetron HCl 4 mg 10/20/19 16:26 Zofran IVP Q8HR PRN Nausea And Vomiting Objective - Vital Signs Vital signs: Vital Signs Temp 97.9 F 10/22/19 07:00 Pulse 84 10/22/19 07:00 Resp 18 10/22/19 07:00 BP 162/88 10/22/19 07:00 Pulse Ox 93 L 10/22/19 07:00 Intake & Output 10/21/19 10/22/19 10/22/19 18:59 06:59 18:59 Intake Total 980 300 Balance 980 300 Weight 79 kg Intake: Intake, IV Titration 400 Amount Sodium Chloride 0.9% 1, 400 000 ml @ 50 mls/hr IV . Q20H [facility] Rx#:[id number] Oral 580 300 Other: Voiding Method Toilet # Voids 2 2 - Exam GENERAL: The patient is alert and oriented x3, not in any acute distress. Well developed, well nourished. HEENT: Pupils are round and equally reacting to light. EOMI. No scleral icterus. No conjunctival pallor. Normocephalic, atraumatic. No pharyngeal erythema. No thyromegaly. CARDIOVASCULAR: S1 and S2 present. No murmurs, rubs, or gallops. -PULMONARY: Chest is clear to auscultation, no wheezing or crackles. left lateral side crepitation ABDOMEN: Soft, nontender, nondistended, normoactive bowel sounds. No palpable organomegaly. MUSCULOSKELETAL: No joint swelling or deformity. EXTREMITIES: No cyanosis, clubbing, or pedal edema. NEUROLOGICAL: Gross neurological examination did not reveal any focal deficits. SKIN: No rashes. no petechiae. - Labs CBC & Chem 7: 10/22/19 07:12 10/21/19 08:44 Labs: Abnormal Lab Results - Last 24 Hours (Table) 10/21/19 10/21/19 10/21/19 Range/Units 08:44 08:44 11:48 WBC (3.8-10.6) k/uL MCHC 30.8 L (31.0-37.0) g/dL Neutrophils # (1.3-7.7) k/uL Lymphocytes # 0.9 L (1.0-4.8) k/uL Glucose 253 H (74-99) mg/dL POC Glucose (mg/dL) 165 H (75-99) mg/dL ALT 49 H (4-34) U/L Total Protein 6.1 L (6.3-8.2) g/dL Albumin 3.2 L (3.5-5.0) g/dL 10/21/19 10/21/19 10/22/19 Range/Units 16:38 20:39 06:48 WBC (3.8-10.6) k/uL MCHC (31.0-37.0) g/dL Neutrophils # (1.3-7.7) k/uL Lymphocytes # (1.0-4.8) k/uL Glucose (74-99) mg/dL POC Glucose (mg/dL) 140 H 223 H 171 H (75-99) mg/dL ALT (4-34) U/L Total Protein (6.3-8.2) g/dL Albumin (3.5-5.0) g/dL 10/22/19 Range/Units 07:12 WBC 12.8 H (3.8-10.6) k/uL MCHC (31.0-37.0) g/dL Neutrophils # 11.8 H (1.3-7.7) k/uL Lymphocytes # 0.7 L (1.0-4.8) k/uL Glucose (74-99) mg/dL POC Glucose (mg/dL) (75-99) mg/dL ALT (4-34) U/L Total Protein (6.3-8.2) g/dL Albumin (3.5-5.0) g/dL Microbiology - Last 24 Hours (Table) 10/19/19 23:52 Blood Culture - Preliminary Blood No Growth after 48 hours Assessment and Plan Assessment: -fall, with multiple left rib fracture consistent with flail chest -left lower lobe pneumonia versus contusion -mild Acute COPD exacerbation and a current smoker -Chronic nicotine dependence patient's cigarette smoker -Sepsis from pneumonia. Patient needs 3 of SIRS criteriawith leukocytosis, tachypnea and tachycardia -Alzheimer's dementia. -Mild hyponatremia, improved -Hypoalbuminemia has an acute phase reactant no clinical evidence of malnutrition -Essential hypertension Plan: this is a pleasant 73 years old female who presents with pneumonia. Patient started on ceftriaxone and Zithromax. Lovenox for DT prophylaxis. DuoNeb, inhaled Pulmicort and IV Solu-Medrol. Nicotine patch. IV fluids. patient is on lisinopril hydrochlorothiazide twice a day. pulmonary consultand cardiothoracic surgery consult, follow-up the recommendation. Labs and medication were reviewed.. Continue same treatment. Continue with symptomatic treatment. Resume home medication. Monitor lytes and vitals. DVT and GI prophylaxis. Further recommendations of the clinical course of the patient DVT prophylaxis: Subcutaneous Lovenox GI Prophylaxis: Pepcid PT/OT: Pending Prognosis is guarded
[2019-10-22 11:47] LABS: Glucose,Whole Blood 110 mg/dL (75-99)
--- NOTE | 2019-10-22 12:11 | P.PN ---
Subjective Progress Note Date: 10/22/19 Principal diagnosis: This is a 73-year-old female patient who is followed by Dr. Gallito Miller on an outpatient basis. She has a past medical history significant for dementia, hy pertension, chronic ongoing tobacco dependence and history of early onset coronary artery disease with her dad having a myocardial infarction at age 48. Due to the patient's dementia and her history has been obtained from the patient's who is sitting at her bedside. According to the patient's on 10/16/2019 his was walking down some stairs going outside when she tripped and fell and landed on her left side on cement. He reports that she did not hit her head. She presented to the emergency department on 10/16/2019 with left-sided chest pain, underwent a chest x-ray which demonstrated minimal pleural reaction at her left lung base with no fracture seen. She was subsequ ently sent home with medical management and pain control. On the evening of 10/19/2019 the patient was brought back to the emergency department here at [facility] with complaints of cough, fever, left-sided chest wall pain and some rattling with her breathing. The patient denies any complaints of pain, shortness of breath, hemoptysis, chills, headache or sputum production at this time. A chest x-ray was completed yesterday 10/20/2019 which showed increase pleural reaction, fluid and segmental atelectasis at the left lung base compared to her old exam 4 days ago. A 12-lead EKG was completed which demonstrated normal sinus rhythm with frequent premature ventricular complexes with a heart rate of 100 BPM. For further evaluation of her left chest wall pain a left rib series x-ray was completed which the report demonstrated segmental fractures of the left fifth through ninth ribs, additional fractures of the left lateral third and fourth ribs, small pleural effusion with prominent left basilar atelectasis or contusion/infiltrate. Due to the findings on the left rib series of possible left flail chest A consult was placed to Dr. Syd Jha from cardiothoracic surgery for further evaluation and treatment recommendations. The patient's currently sitting up in bed in no acute distress, remains on room air. States pain is better controlled today, denies shortness of breath. Son at the bedside. Chest x-ray reviewed. No new concerns. Objective - Vital Signs Vital signs: Vital Signs Temp 97.9 F 10/22/19 07:00 Pulse 84 10/22/19 12:00 Resp 18 10/22/19 07:00 BP 162/88 10/22/19 07:00 Pulse Ox 93 L 10/22/19 07:00 Intake & Output 10/21/19 10/22/19 10/22/19 18:59 06:59 18:59 Intake Total 980 300 Balance 980 300 Weight 79 kg Intake: Intake, IV Titration 400 Amount Sodium Chloride 0.9% 1, 400 000 ml @ 50 mls/hr IV . Q20H [facility] Rx#:[id number] Oral 580 300 Other: Voiding Method Toilet Toilet # Voids 2 2 2 # Bowel Movements 1 - Constitutional General appearance: Present: cooperative, no acute distress - Respiratory Details: Lungs sounds diminished bilaterally. Respirations even, nonlabored. Currently on room air with oxygen saturation 93%. Able to achieve 1500 mL on her incentive spirometry. - Cardiovascular Details: S1, S2 present. Irregular rate and rhythm. Palpable peripheral pulses bilaterally. No edema present. No calf pain or tenderness noted. - Gastrointestinal Gastrointestinal Comment(s): Abdomen soft, nontender, nondistended. Active bowel sounds present 4 quadrants. Tolerating diet. - Genitourinary Genitourinary Comment(s): Continues to void - Integumentary Integumentary Comment(s): Skin is warm and dry - Neurologic Neurologic: Present: CNII-XII intact - Musculoskeletal Musculoskeletal: Present: strength equal bilaterally - Psychiatric Psychiatric Comment(s): Appropriate affect, patient is oriented to person - Allied health notes Allied health notes reviewed: nursing - Labs CBC & Chem 7: 10/22/19 07:12 10/21/19 08:44 Labs: Abnormal Lab Results - Last 24 Hours (Table) 10/21/19 10/21/19 10/21/19 Range/Units 08:44 16:38 20:39 WBC (3.8-10.6) k/uL MCHC 30.8 L (31.0-37.0) g/dL Neutrophils # (1.3-7.7) k/uL Lymphocytes # 0.9 L (1.0-4.8) k/uL POC Glucose (mg/dL) 140 H 223 H (75-99) mg/dL 10/22/19 10/22/19 10/22/19 Range/Units 06:48 07:12 11:46 WBC 12.8 H (3.8-10.6) k/uL MCHC (31.0-37.0) g/dL Neutrophils # 11.8 H (1.3-7.7) k/uL Lymphocytes # 0.7 L (1.0-4.8) k/uL POC Glucose (mg/dL) 171 H 110 H (75-99) mg/dL Microbiology - Last 24 Hours (Table) 10/19/19 23:52 Blood Culture - Preliminary Blood No Growth after 48 hours - Imaging and Cardiology Chest x-ray: report reviewed, image reviewed Assessment and Plan Assessment: 1. Status post fall from standing with multiple rib fractures on the left involving fifth through ninth ribs, and additional fractures of the left lateral third and fourth ribs 2. Advanced dementia 3. Ongoing chronic nicotine dependence 4. Essential hypertension Plan: 1. No surgical intervention warranted at this time, conservative management 2. Encourage incentive spirometry is 10 times every hour while awake 3. Encourage smoking cessation 4. Pain control with current medication regimen 5. Bronchodilators per pulmonology 6. Medical management of other comorbid conditions per primary care, pulmonolo gy 7. Will see on an as-needed basis. Please call us with any further questions Time with Patient: Greater than 30
[2019-10-22] MEDS ORDERED: predniSONE 20 MG TAB PO SCH (14:00)
[2019-10-22 16:36] LABS: Glucose,Whole Blood 153 mg/dL (75-99)
[2019-10-22] MEDS ORDERED: amLODIPine 5 MG TAB PO STA (21:01)
[2019-10-22 21:24] LABS: Glucose,Whole Blood 191 mg/dL (75-99)
[2019-10-22] MEDS: MELATONIN 3 MG TABLET PO PRN (21:46)
[2019-10-22] MEDS: ACETAMINOPHEN TAB 325 MG TAB PO PRN (21:46)
[2019-10-22] MEDS: AZITHROMYCIN 500 MG TAB PO SCH (21:46)
[2019-10-23] MEDS: KETOROLAC 30 MG/ML 1 ML VIAL IVP SCH ×2 (00:15→05:37)
[2019-10-23] MEDS: guaiFENesin-DM 100-10MG/5ML 10 ML CUP PO SCH ×2 (00:16→08:44)
[2019-10-23] MEDS ORDERED: IPRATROPIUM-ALBUTEROL 3 ML NEB INHALATION PRN (01:46)
[2019-10-23] MEDS: IPRATROPIUM-ALBUTEROL 3 ML NEB INHALATION SCH ×3 (01:46→13:41)
[2019-10-23] MEDS: ACETAMINOPHEN TAB 325 MG TAB PO PRN (05:36)
[2019-10-23] MEDS: ALPRAZolam 0.25 MG TAB PO PRN (05:37)
[2019-10-23 06:41] VITALS: TEMP 97.8
[2019-10-23 06:59] LABS: Glucose,Whole Blood 139 mg/dL (75-99)
[2019-10-23] MEDS: INSULIN ASPART (NovoLOG) 100 UNIT/ML VIAL SQ SCH ×2 (07:22→12:02)
--- NOTE | 2019-10-23 07:51 | XR ---
EXAMINATION TYPE: XR chest 2V DATE OF EXAM: 10/23/2019 COMPARISON: 10/22/2019 HISTORY: 73-year-old female pneumonia, multiple left-sided rib fractures TECHNIQUE: AP and lateral views FINDINGS: Heart upper limits of normal in size. Diffuse interstitial opacities. Patchy left basilar opacity. Sm all effusions, left greater than right. Left basilar density slightly increased. Multiple left-sided rib fracture deformities. IMPRESSION: 1. Interstitial opacities throughout. Correlate to exclude pulmonary vascular congestion. 2. Some increasing patchy left basilar atelectasis versus pneumonia. Clinically correlate. 3. Small left greater than right pleural effusions. 4. Known multiple left-sided rib fractures.
[2019-10-23 08:07] LABS: Basophils % (A) 0 %; Eosinophils % (A) 0 %; HCT 39.7 % (34.0-46.0); HGB 12.9 gm/dL (11.4-16.0); Lymphocytes # (A) 0.8 k/uL (1.0-4.8); Lymphocytes % (A) 9 %; MCH 31.4 pg (25.0-35.0); MCHC 32.5 g/dL (31.0-37.0); MCV 96.5 fL (80.0-100.0); Mean Platelet Volume 9.2; Monocytes # (A) 0.6 k/uL (0-1.0); Monocytes % (A) 7 %; Neutrophils % (A) 83 %; Platelet Count 212 k/uL (150-450); RBC 4.12 m/uL (3.80-5.40); RDW 12.2 % (11.5-15.5); WBC 9.6 k/uL (3.8-10.6)
[2019-10-23 08:19] VITALS: BP 138/75; RESP 16
[2019-10-23] MEDS: CALCIUM CARB-VIT D 500MG-200UN 1 EACH TAB PO SCH (08:51)
[2019-10-23] MEDS: FAMOTIDINE 20 MG/2 ML VIAL IV SCH (08:53)
[2019-10-23] MEDS: ENOXAPARIN 40 MG/0.4 ML SYRINGE SQ SCH (08:53)
[2019-10-23] MEDS: NICOTINE 14MG/24HR PATCH TRANSDERM SCH (08:53)
[2019-10-23] MEDS ORDERED: predniSONE 20 MG TAB PO SCH (09:00)
[2019-10-23] MEDS: BUDESONIDE 1 MG/2 ML NEBU INHALATION SCH (09:01)
[2019-10-23 09:04] VITALS: PULSE 80
--- NOTE | 2019-10-23 09:19 | P.DS ---
Providers Date of admission: 10/22/19 09:06 Attending physician: Miles Orellana Consults: 10/20/19 16:27 Consult Physician Routine Consulting Provider: Price Hoffman Consult Reason/Comments: Pneumonia Do you want consulting provider notified?: Yes 10/21/19 15:43 Consult Physician Routine Consulting Provider: Syd Jha Consult Reason/Comments: fall several days ago - left sided rib fractures with possible flail chest Do you want consulting provider notified?: Yes Primary care physician: Gallito Miller Hospital Course: Diagnoses: -fall, with multiple left rib fracture consistent with flail chest -left lower lobe pneumonia versus contusion -mild Acute COPD exacerbation and a current smoker -Osteoporosis -Chronic nicotine dependence patient's cigarette smoker -Sepsis from pneumonia. Patient needs 3 of SIRS criteriawith leukocytosis, tachypnea and tachycardia -Alzheimer's dementia. -Mild hyponatremia, improved -Hypoalbuminemia has an acute phase reactant no clinical evidence of malnutrition -Essential hypertension Hospital course: This is a 73-year-old patient of Dr. Gallito Miller. Most of the history is obtained by the family at the bedside. Patient has dementia , patient was walking outside in rainy slippery whether when she slipped and fell on her left side. Followed by chest congestion for about 3 days associated with cough and l eft side pleuritic-like chest pain. Patient was admitted to the hospital with possible left lower lobe pneumonia various contusion, her rib x-ray showing multiple rib fractures on the left side suspicious for flail chest. Patient has been evaluated by seed core operator and thoracic surgeon, she was treated conservatively with antibiotics with Zithromax and ceftriaxone, steroids and pain management. Calcium and vitamin D were added for osteoporosis. However patient remains hemodynamically stable, she is afebrile with only mild leukocytosis count elevated secondary to steroid effect, came back to normal prior to discharge. No fever for the last few days. And she saturating 90s on room air, and patient is not tachypneic. Eventually patient improved clinically. Patient should've cleared for discharge by both pulmonary and thoracic surgery teams Physical therapy recommended home with family Problems and management plan were discussed with the patient and at bedside and they verbalized understanding and acceptance Patient was found stable and can be discharged home however he needs follow-up as an outpatient. Patient was instructed to follow up with PCP Dr. Gallito Miller within one week and patient agrees.also patient was instructed to follow up with seed core operator Dr. Hoffman and agree. -Gen: patient is a alert awake and partially oriented to the surrounding, no dis tress CVS: S1-S2, RRR, no murmur -Lungs: B/L CTA, no wheezing. Left chest wall tenderness Abdomen: soft, no distention, no tenderness, positive bowel sounds Extremity: no leg edema or induration Time spent more than 35 minutes Patient Condition at Discharge: Fair Plan - Discharge Summary Discharge Rx Participant: No New Discharge Prescriptions: No Action No Known Home Medications Discharge Medication List No Known Home Medications 10/20/19 [History] Follow up Appointment(s)/Referral(s): Gallito Miller MD [Primary Care Provider] - 1-2 days Price Hoffman MD [STAFF PHYSICIAN] - 1 Week
[2019-10-23] MEDS ORDERED: LIDOCAINE 5% PATCH TOPICAL SCH (09:30)
--- NOTE | 2019-10-23 11:05 | P.PN ---
Subjective Progress Note Date: 10/23/19 Principal diagnosis: Status post fall with multiple rib fractures on the left side involving third fourth laterally as well as fifth to ninth rib, Left lower lobe atelectasis Left lower lobe stable pneumonia Small bilateral pleural effusion Baseline severe COPD Advanced dementia and Alzheimer's disease Smoking and nicotine use 10/23/2019, patient seen eval examined during the rounds labs reviewed medications reviewed, patient is sitting upright on the chair breathing co mfortably off supplemental oxygen on room air, denies any significant HEENT respiration has been stable, chest x-ray from today is reviewed very small bilateral pleural effusions present along with some atelectasis possibly due to pneumonia is clear clinically however patient has been doing well leukocytosis have improved and stable lobe and, not rattling or short of breath noted as before agree with discharge planning however patient will require nebulizer treatment and follow-up in the office care plan discussed with daughter present at bedside at length This is a 73-year-old female with the COPD and extensive history of smoking and nicotine use has been actively smoking half to one third pack per day L Que the time she was admitted, she sees Dr. Bullock for primary care activity, patient's family including and daughter is present at the bedside, maribell ble to give detailed history however data has been obtained from the chart and as well as the and daughter patient tripped and fell down and landed on the left side of the chest and brought into the emergency department, initial x- ray revealed presence of subsegmental atelectasis at the left lung base, some early pulmonary fibrosis is noted, possibly developing left lower lobe pneumonia cannot be excluded, today's reviewed chest x-ray has been reviewed, patient noted to have multiple fractures from left fifth to ninth rib, additional third and fourth lateral fractures also noted along with some effusion and atelectasis and developing pneumonia, patient is on 2 L oxygen, saturation is 98%, hemodynamic stable remains afebrile, white cell count is 13,000, her carona virus test is negative, she is being treated with the bronchodilators along with antibiotics, deep breathing exercises incentive spirometry, also getting IV steroids Objective - Vital Signs Vital signs: Vital Signs Temp 97.8 F 10/23/19 03:05 Pulse 80 10/23/19 09:19 Resp 16 10/23/19 08:05 BP 138/75 10/23/19 08:05 Pulse Ox 96 10/23/19 08:05 Intake & Output 10/22/19 10/23/19 10/23/19 18:59 06:59 18:59 Intake Total 890 300 Balance 890 300 Intake: Intake, IV Titration 350 Amount Sodium Chloride 0.9% 1, 300 000 ml @ 50 mls/hr IV . Q20H [facility] Rx#:[id number] cefTRIAXone 1 gm In 50 Sodium Chloride 0.9% 50 ml @ 100 mls/hr IVPB Q24HR [facility] Rx#:[id number] Oral 540 300 Other: Voiding Method Toilet Toilet # Voids 2 2 # Bowel Movements 1 1 - Exam - Constitutional General appearance: average body habitus, cooperative, disheveled, mild distress - EENT Eyes: anicteric sclerae, EOMI, PERRLA, normal appearance ENT: hearing grossly normal, normal oropharynx Ears: bilateral: normal - Neck Neck: normal ROM Carotids: bilateral: upstroke normal - Respiratory Respiratory: bilateral: diminished, rales (At the left base) - Cardiovascular Rhythm: regular Heart sounds: normal: S1, S2 - Gastrointestinal General gastrointestinal: decreased bowel sounds - Integumentary Integumentary: normal turgor - Neurologic Neurologic: CNII-XII intact - Musculoskeletal Musculoskeletal: gait normal, generalized weakness, strength equal bilaterally - Psychiatric Psychiatric: A&O x's 3, appropriate affect, intact judgment & insight - Labs CBC & Chem 7: 10/23/19 07:05 10/21/19 08:44 Labs: Abnormal Lab Results - Last 24 Hours (Table) 10/22/19 10/22/19 10/22/19 Range/Units 11:46 16:34 21:23 Neutrophils # (1.3-7.7) k/uL Lymphocytes # (1.0-4.8) k/uL POC Glucose (mg/dL) 110 H 153 H 191 H (75-99) mg/dL 10/23/19 10/23/19 Range/Units 06:56 07:05 Neutrophils # 8.0 H (1.3-7.7) k/uL Lymphocytes # 0.8 L (1.0-4.8) k/uL POC Glucose (mg/dL) 139 H (75-99) mg/dL Microbiology - Last 24 Hours (Table) 10/19/19 23:52 Blood Culture - Preliminary Blood No Growth after 72 hours Assessment and Plan Assessment: Status post fall with multiple rib fractures on the left side involving third fourth laterally as well as fifth to ninth rib, Left lower lobe atelectasis Left lower lobe developing pneumonia Small bilateral pleural effusion Baseline severe COPD Advanced dementia and Alzheimer's disease Smoking and nicotine use Plan: Continue monitor and observe off of oxygen Continue deep breathing exercise incentive spirometry Increase activity as tolerated Continue bronchodilator, antibiotics and steroids can be changed to oral Repeat chest x-ray reviewed Patient is clinically stable wishes to go home would recommend to DC and follow- up as outpatient Further recommendations pending plan of care as per clinical response of the patient Time with Patient: Greater than 30
[2019-10-23 11:57] LABS: Glucose,Whole Blood 104 mg/dL (75-99)
== END 2019-10-23 13:48 | disposition home or self-care (01) | DRG 871 ==
LOC: EC 23:21 → 4SSUR 10-20 01:51 → OBSVTOIN 10-22 09:06
PROVIDERS: ADMIT Hospitalist; ATTEND Hospitalist
DX: A41.50 Gram-negative sepsis, unspecified (principal); S22.5XXA Flail chest, initial encounter for closed fracture; J15.6 Pneumonia due to other Gram-negative bacteria; S27.321A Contusion of lung, unilateral, initial encounter; E87.1 Hypo-osmolality and hyponatremia; J44.0 Chronic obstructive pulmonary disease with (acute) lower respiratory infection; J44.1 Chronic obstructive pulmonary disease with (acute) exacerbation; J98.11 Atelectasis; F17.210 Nicotine dependence, cigarettes, uncomplicated; E88.09 Other disorders of plasma-protein metabolism, not elsewhere classified; G30.9 Alzheimer's disease, unspecified; F02.80 Dementia in other diseases classified elsewhere, unspecified severity, without behavioral disturbance, psychotic disturbance, mood disturbance, and anxiety; I10 Essential (primary) hypertension; I25.10 Atherosclerotic heart disease of native coronary artery without angina pectoris; I25.2 Old myocardial infarction; I49.3 Ventricular premature depolarization; J84.10 Pulmonary fibrosis, unspecified; M81.0 Age-related osteoporosis without current pathological fracture; T38.0X5A Adverse effect of glucocorticoids and synthetic analogues, initial encounter; W01.0XXA Fall on same level from slipping, tripping and stumbling without subsequent striking against object, initial encounter; Y93.01 Activity, walking, marching and hiking; Z82.49 Family history of ischemic heart disease and other diseases of the circulatory system; Z20.828 Contact with and (suspected) exposure to other viral communicable diseases
CPT/HCPCS: 36415; 71046; 80053; 83605; 83880; 84484; 85025; 85610; 85730; 87040; 93005; 94640; 96365; 99285

== ENCOUNTER → 2019-11-08 | Outpatient (CLI) | payer MEDICARE ==
--- NOTE | 2019-11-08 13:43 | XR ---
EXAMINATION TYPE: XR chest 2V DATE OF EXAM: 11/08/2019 COMPARISON: Prior chest x-ray 10/23/2019 HISTORY: Pneumonia, history of fall in October, left-sided rib fractures TECHNIQUE: Frontal and lateral views of the chest are obtained. FINDINGS: There is blunting of the left costophrenic angle, obscured left hemidiaphragm. Increased b asilar density which is developed in the interval. Strand-like densities at the left lung base likely reflect some local atelectasis or scar. No evident pneumothorax. Aorta is dense. Heart appears promi nently and is stable, patient is rotated. Bone mineralization is reduced. Posterior rib fractures are present to include fifth, sixth, seventh and eighth ribs. Thoracic spondylosis is present. IMPRESSION: Multiple left-sided rib fractures, pleural effusion and associated atelectasis, correlat e to exclude pneumonia.
== END | disposition home or self-care (01) ==
LOC: RADXRMAIN 12:52
PROVIDERS: ATTEND Internal Medicine Sleep Medicine
DX: S22.42XA Multiple fractures of ribs, left side, initial encounter for closed fracture (principal); J90 Pleural effusion, not elsewhere classified; J98.11 Atelectasis
CPT/HCPCS: 71046

== ENCOUNTER 2022-12-26 14:02 | Observation (INO) | payer MEDICARE ==
--- NOTE | 2022-12-26 14:20 | ED ---
General Adult HPI - General Stated complaint: AMS Time Seen by Provider: 12/26/22 14:04 Source: patient, RN notes reviewed Limitations: altered mental status - History of Present Illness Initial comments: Patient is a pleasant 77-year-old female presenting from home with concern for change in mental status. EMS reports that family states patient has been declining over the past week. Unclear if history of similar symptoms previously. Patient is a poor historian and offers no significant history. Patient has no complaints. - Related Data Home Medications Medication Instructions Recorded Confirmed ALPRAZolam [Xanax] 0.125 mg PO DAILY 12/26/22 12/26/22 ALPRAZolam [Xanax] 0.25 mg PO HS 12/26/22 12/26/22 OLANZapine [ZyPREXA] 2.5 mg PO DAILY@1600 12/26/22 12/26/22 Allergies Allergy/AdvReac Type Severity Reaction Status Date / Time No Known Allergies Allergy Verified 12/26/22 15:50 Review of Systems ROS Statement: Those systems with pertinent positive or pertinent negative responses have been documented in the HPI. ROS Other: All systems not noted in ROS Statement are negative. Limitations: ROS unobtainable due to patients medical condition Past Medical History Past Medical History: Dementia, Hypertension History of Any Multi-Drug Resistant Organisms: None Reported Past Surgical History: Cholecystectomy, Tonsillectomy Past Anesthesia/Blood Transfusion Reactions: No Reported Reaction Past Psychological History: No Psychological Hx Reported Past Alcohol Use History: Occasional Past Drug Use History: None Reported - Past Family History Mother Additional Family Medical History / Comment(s): from a brain aneurysm in her mid 60s. Father Family Medical History: Myocardial Infarction ([place]) Additional Family Medical History / Comment(s): from a myocardial infarction at age 48. General Exam Limitations: altered mental status General appearance: alert, in no apparent distress Head exam: Present: atraumatic Eye exam: Present: normal appearance, PERRL, EOMI ENT exam: Present: normal oropharynx Neck exam: Present: normal inspection. Absent: tenderness Respiratory exam: Present: normal lung sounds bilaterally Cardiovascular Exam: Present: regular rate, normal rhythm GI/Abdominal exam: Present: soft. Absent: tenderness Extremities exam: Present: normal inspection, full ROM. Absent: tenderness Neurological exam: Present: alert, altered, CN II-XII intact. Absent: motor sensory deficit Expanded Neurological exam: Present: protecting the airway Patient oriented to: Present: person. Absent: place, time Motor strength exam: RUE: 5, LUE: 5, RLE: 5, LLE: 5 Eye Response: (4) open spontaneously Motor Response: (6) obeys commands Verbal Response: (3) inappropriate words Psychiatric exam: Present: normal affect, normal mood Skin exam: Present: normal color Course Vital Signs 12/26/22 12/26/22 12/26/22 14:13 14:18 15:18 Temperature 97.5 F L Pulse Rate 76 86 78 Respiratory 20 20 20 Rate Blood Pressure 152/76 150/76 124/74 O2 Sat by Pulse 98 98 98 Oximetry 12/26/22 16:00 Temperature Pulse Rate 75 Respiratory 16 Rate Blood Pressure 185/93 O2 Sat by Pulse 98 Oximetry EKG Findings - EKG Results: EKG: interpreted by PANDA (Apparent sinus rhythm with artifact. Premature ventricular complexes present. Left axis. LVH criteria. No acute ST change. Motion artifact is present.) Medical Decision Making - Medical Decision Making Was pt. sent in by a medical professional or institution (, PA, BRAND COORDINATOR, urgent care, hospital, or snf...) When possible be specific @ -No Did you speak to anyone other than the patient for history (EMS, parent, family, police, friend...)? What history was obtained from this source @ -Family does arrive later and provides additional history that patient cannot. Patient has rapidly deteriorated over the past couple of weeks, specifically the last couple of days. Patient is no longer walking. Patient no longer feels herself. Patient has been more confused and more aggressive. Did you review nursing and triage notes (agree or disagree)? Why? @ -I reviewed and agree with nursing and triage notes Were old charts reviewed (outside hosp., previous admission, EMS record, old EKG, old radiological studies, urgent care reports/EKG's, snf records)? Report findings @ -No old charts were reviewed Differential Diagnosis (chest pain, altered mental status, abdominal pain women, abdominal pain men, vaginal bleeding, weakness, fever, dyspnea, syncope, headache, dizziness, GI bleed, back pain, seizure, CVA, palpatations, mental health, musculoskeletal)? @ -Differential Altered Mental Status: Hypoglycemia, DKA, hypercapnia, ETOH, overdose, CO poisoning, trauma, myxedema coma, HTN encephalopathy, infection, encephalitis, psychosis, intercranial hemorrhage, hepatic encephalopathy, meningitis, CVA, this is not meant to be an all-inclusive list EKG interpreted by me (3pts min.). @ -As above X-rays interpreted by me (1pt min.). @ -Chest x-ray does not reveal acute abnormality CT interpreted by me (1pt min.). @ -CT brain does have motion artifact. No large hemorrhage or mass U/S interpreted by me (1pt. min.). @ -None done What testing was considered but not performed or refused? (CT, X-rays, U/S, labs)? Why? @ -None What meds were considered but not given or refused? Why? @ -None Did you discuss the management of the patient with other professionals (professionals i.e. , PA, BRAND COORDINATOR, lab, RT, psych nurse, social security benefits interviewer, proctologist, teacher, special assets officer, transplant case manager)? Give summary @ -Case was discussed with Dr. Loya, who will admit covering hospital call. Was smoking cessation discussed for >3mins.? @ -No Was critical care preformed (if so, how long)? @ -No Were there social determinants of health that impacted care today? How? (Homelessness, low income, unemployed, alcoholism, drug addiction, transportation, low edu. Level, literacy, decrease access to med. care, nursing home, rehab)? @ -No Was there de-escalation of care discussed even if they declined (Discuss DNR or withdrawal of care, Hospice)? DNR status @ -No What co-morbidities impacted this encounter? (DM, HTN, Smoking, COPD, CAD, Canc er, CVA, ARF, Chemo, Hep., AIDS, mental health diagnosis, sleep apnea, morbid obesity)? @ -None Was patient admitted / discharged? Hospital course, mention meds given and route, prescriptions, significant lab abnormalities, going to OR and other pertinent info. @ -Patient reevaluated. Further history taken from family. Patient will be admitted. Admission orders written. Neurology will be placed on consult. nuclear worker technician will be consult Undiagnosed new problem with uncertain prognosis? @ -No Drug Therapy requiring intensive monitoring for toxicity (Heparin, Nitro, Insulin, Cardizem)? @ -No Were any procedures done? @ -No Diagnosis/symptom? @ -Altered mental status Acute, or Chronic, or Acute on Chronic? @ -Acute Uncomplicated (without systemic symptoms) or Complicated (systemic symptoms)? @ -default Side effects of treatment? @ -No Exacerbation, Progression, or Severe Exacerbation? @ -No Poses a threat to life or bodily function? How? (Chest pain, [place], [place], pneumonia, PE, COPD, DKA, ARF, appy, cholecystitis, CVA, Diverticulitis, Homicidal, Suicidal, threat to staff... and all critical care pts) @ -No - Lab Data Result diagrams: 12/26/22 14:17 12/26/22 14:17 Lab Results 12/26/22 12/26/22 12/26/22 Range/Units 14:17 14:17 14:17 WBC 8.0 (3.8-10.6) k/uL RBC 4.96 (3.80-5.40) m/uL Hgb 14.9 (11.4-16.0) gm/dL Hct 45.8 (34.0-46.0) % MCV 92.4 (80.0-100.0) fL MCH 30.0 (25.0-35.0) pg MCHC 32.4 (31.0-37.0) g/dL RDW 12.2 (11.5-15.5) % Plt Count 276 (150-450) k/uL MPV 8.8 Neutrophils % 70 % Lymphocytes % 16 % Monocytes % 7 % Eosinophils % 3 % Basophils % 0 % Neutrophils # 5.6 (1.3-7.7) k/uL Lymphocytes # 1.3 (1.0-4.8) k/uL Monocytes # 0.6 (0-1.0) k/uL Eosinophils # 0.2 (0-0.7) k/uL Basophils # 0.0 (0-0.2) k/uL PT 10.3 (9.0-12.0) sec INR 1.0 (<1.2) APTT 21.9 L (22.0-30.0) sec Sodium (137-145) mmol/L Potassium (3.5-5.1) mmol/L Chloride (98-107) mmol/L Carbon Dioxide (22-30) mmol/L Anion Gap mmol/L BUN (7-17) mg/dL Creatinine (0.52-1.04) mg/dL Est GFR (CKD-EPI)AfAm (>60 ml/min/1.73 sqM) Est GFR (CKD-EPI)NonAf (>60 ml/min/1.73 sqM) Glucose (74-99) mg/dL Calcium (8.4-10.2) mg/dL Total Bilirubin (0.2-1.3) mg/dL AST (14-36) U/L ALT (4-34) U/L Alkaline Phosphatase (38-126) U/L Troponin I (0.000-0.034) ng/mL Total Protein (6.3-8.2) g/dL Albumin (3.5-5.0) g/dL Urine Color Yellow Urine Appearance Clear (Clear) Urine pH 5.5 (5.0-8.0) Ur Specific [place] 1.009 (1.001-1.035) Urine Protein Negative (Negative) Urine Glucose (UA) Negative (Negative) Urine Ketones Negative (Negative) Urine Blood Negative (Negative) Urine Nitrite Negative (Negative) Urine Bilirubin Negative (Negative) Urine Urobilinogen <2.0 (<2.0) mg/dL Ur Leukocyte Esterase Negative (Negative) 12/26/22 12/26/22 Range/Units 14:17 14:17 WBC (3.8-10.6) k/uL RBC (3.80-5.40) m/uL Hgb (11.4-16.0) gm/dL Hct (34.0-46.0) % MCV (80.0-100.0) fL MCH (25.0-35.0) pg MCHC (31.0-37.0) g/dL RDW (11.5-15.5) % Plt Count (150-450) k/uL MPV Neutrophils % % Lymphocytes % % Monocytes % % Eosinophils % % Basophils % % Neutrophils # (1.3-7.7) k/uL Lymphocytes # (1.0-4.8) k/uL Monocytes # (0-1.0) k/uL Eosinophils # (0-0.7) k/uL Basophils # (0-0.2) k/uL PT (9.0-12.0) sec INR (<1.2) APTT (22.0-30.0) sec Sodium 141 (137-145) mmol/L Potassium 4.0 (3.5-5.1) mmol/L Chloride 109 H (98-107) mmol/L Carbon Dioxide 23 (22-30) mmol/L Anion Gap 9 mmol/L BUN 15 (7-17) mg/dL Creatinine 0.43 L (0.52-1.04) mg/dL Est GFR (CKD-EPI)AfAm >90 (>60 ml/min/1.73 sqM) Est GFR (CKD-EPI)NonAf >90 (>60 ml/min/1.73 sqM) Glucose 125 H (74-99) mg/dL Calcium 8.9 (8.4-10.2) mg/dL Total Bilirubin 0.9 (0.2-1.3) mg/dL AST 22 (14-36) U/L ALT 22 (4-34) U/L Alkaline Phosphatase 312 H (38-126) U/L Troponin I <0.012 (0.000-0.034) ng/mL Total Protein 6.9 (6.3-8.2) g/dL Albumin 3.5 (3.5-5.0) g/dL Urine Color Urine Appearance (Clear) Urine pH (5.0-8.0) Ur Specific [place] (1.001-1.035) Urine Protein (Negative) Urine Glucose (UA) (Negative) Urine Ketones (Negative) Urine Blood (Negative) Urine Nitrite (Negative) Urine Bilirubin (Negative) Urine Urobilinogen (<2.0) mg/dL Ur Leukocyte Esterase (Negative) Disposition Clinical Impression: Altered mental status Disposition: ADMITTED IP TO THIS [facility] Condition: Stable Is patient prescribed a controlled substance at d/c from ED?: No Referrals: None,Stated [REFERRING] - 1-2 days Time of Disposition: 17:20
[2022-12-26 14:44] LABS: Basophils % (A) 0 %; Eosinophils # (A) 0.2 k/uL (0-0.7); Eosinophils % (A) 3 %; HCT 45.8 % (34.0-46.0); HGB 14.9 gm/dL (11.4-16.0); Lymphocytes # (A) 1.3 k/uL (1.0-4.8); Lymphocytes % (A) 16 %; MCHC 32.4 g/dL (31.0-37.0); MCV 92.4 fL (80.0-100.0); Mean Platelet Volume 8.8; Monocytes # (A) 0.6 k/uL (0-1.0); Monocytes % (A) 7 %; Neutrophils # (A) 5.6 k/uL (1.3-7.7); Neutrophils % (A) 70 %; Platelet Count 276 k/uL (150-450); RBC 4.96 m/uL (3.80-5.40); RDW 12.2 % (11.5-15.5)
[2022-12-26 14:48] LABS: Appearance,Urine Clear (Clear); Bilirubin,Urine Negative (Negative); Blood,Urine Negative (Negative); Color,Urine Yellow; Glucose,Urine (UA) Negative (Negative); Ketones,Urine Negative (Negative); Leukocyte Esterase,Urine Negative (Negative); Nitrite,Urine Negative (Negative); PH, Urine 5.5 (5.0-8.0); Protein,Urine Negative (Negative); Specific Gravity,Urine 1.009 (1.001-1.035); Urobilinogen,Urine <2.0 mg/dL (<2.0)
--- NOTE | 2022-12-26 15:05 | XR ---
EXAMINATION TYPE: XR chest 2V DATE OF EXAM: 12/26/2022 COMPARISON: 11/08/2019 INDICATION: Altered mental status A. fib TECHNIQUE: Frontal and lateral views of the chest are obtained. FINDINGS: The heart size is normal. The pulmonary vasculature is normal. The lungs are clear. There is increased kyphosis present through the thoracic spine. IMPRESSION: 1. No acute pulmonary process.
[2022-12-26 15:08] LABS: Prothrombin Time 10.3 sec (9.0-12.0)
[2022-12-26 15:10] LABS: ALT 22 U/L (4-34); AST 22 U/L (14-36); African American GFR (CKD) >90 (>60 ml/min/1.73 sqM); Albumin 3.5 g/dL (3.5-5.0); Alkaline Phosphatase 312 U/L (38-126); Anion Gap 9 mmol/L; Blood Urea Nitrogen 15 mg/dL (7-17); Calcium 8.9 mg/dL (8.4-10.2); Carbon Dioxide 23 mmol/L (22-30); Chloride 109 mmol/L (98-107); Glucose 125 mg/dL (74-99); Non-African American GFR(CKD) >90 (>60 ml/min/1.73 sqM); Sodium 141 mmol/L (137-145); Total Bilirubin 0.9 mg/dL (0.2-1.3); Total Protein 6.9 g/dL (6.3-8.2)
--- NOTE | 2022-12-26 15:13 | CT ---
EXAMINATION TYPE: CT brain wo con DATE OF EXAM: 12/26/2022 COMPARISON: None HISTORY: Altered mental status. CT DLP: 1122.4 mGycm Automated exposure control for dose reduction was used. FINDINGS: There is hyperostosis of calvarium. There is no midline shift or mass effect. There is moderate generalized degenerative change and low a ttenuation white matter. Significant artifact limits assessment for subtle hemorrhage. No sizable int raparenchymal large hemorrhage is seen. No midline shift. Craniocervical junction maintained. Sella turcica normal. Orbits are symmetric. There is intracranial dense atherosclerotic changes in the vertebral arteries and cavernous segment bilateral ICA. IMPRESSION: 1. LIMITED EXAM DUE TO EXTENSIVE ARTIFACT AND RESOLUTION. NO OBVIOUS MIDLINE SHIFT OR MASS EFFECT. CA NNOT EXCLUDE SUBTLE PETECHIAL HEMORRHAGE BASED ON THE LIMITATIONS OF THIS EXAM. NO LARGE INTRAPARENCH YMAL HEMORRHAGE. RECOMMEND MRI GIVEN LIMITATIONS OF EXAM. 2. MODERATE DEGENERATIVE AND MILD REMOTE ISCHEMIC WHITE MATTER CHANGE.
[2022-12-26 15:25] LABS: Partial Thromboplastin Time 21.9 sec (22.0-30.0)
[2022-12-26] MEDS ORDERED: NALOXONE 0.4 MG/ML 1 ML VIAL IV PRN (17:21)
--- NOTE | 2022-12-26 18:32 | P.HPIM ---
History of Present Illness H&P Date: 12/26/22 Patient is a 77-year-old female with advanced dementia presents the ED for worsening weakness and altered mentation. Daughter is at bedside providing majority of the history. Patient has had worsening dementia for years now and over the last 2 weeks she needed assistance for feeding and to help her to the bathroom. At that time, she was able to answer yes or no questions. Since Monday, she has stopped walking and cannot feed herself. She has also stopped talking and exhibits aggressive behavior towards family members. Family has brought her to the ED given that they're unable to take care of anymore. In the ED, her vital signs were stable. CBC is unremarkable. Coagulation panel shows a PTT of 21.9. CMP shows chloride of 109, creatinine of 0.43, glucose of 125, alkaline phosphatase 312. Troponin less than 0.012. Urinalysis negative. CXR negative. EKG shows AFib with PVCs ventricular rate of 81. Patient is admitted for placement and workup of dementia. Pertinent positives and negatives as discussed in HPI, a complete review of systems was performed and all other systems are negative. General: non toxic, no distress, appears at stated age Derm: warm, dry Head: atraumatic, normocephalic, symmetric Eyes: EOMI, no lid lag, anicteric sclera Mouth: no lip lesion, mucus membranes moist Cardiovascular: S1S2 reg, no murmur Lungs: CTA bilateral, no rhonchi, no rales , no accessory muscle use Ext: no gross muscle atrophy, no edema, no contractures Neuro: Unable to perform Psych: Alert, oriented x 0 Advanced dementia Based on my assessment of this patient, this patient meets a high complexity level of care. Patient has an acute diagnosis of advanced dementia that poses a threat to life or bodily function. Advanced dementia: MRI brain if patient can tolerate. Fall precautions. Neurochecks. Obtain TSH, B12, Folate. Window side bed. Frequent re-direction. Neurology consult. Daughter is interested in hospice. She will need 24H care and placement. SCD boots POA: and Son NO CODE I have reviewed the following citrix consultant notes: I have reviewed the results of the following tests: CBC, CMP, Coag panel, Troponin, UA, CXR. I have ordered the following tests: B12, Folate, TSH, MRI brain I have discussed the care of this patient with the following independent historian: I have independently interpreted the following test below: EKG as above. I have discussed the management of this patient with the following physician: Disussed with ED provider. Past Medical History Past Medical History: Dementia, Hypertension History of Any Multi-Drug Resistant Organisms: None Reported Past Surgical History: Cholecystectomy, Tonsillectomy Past Anesthesia/Blood Transfusion Reactions: No Reported Reaction Past Psychological History: No Psychological Hx Reported Past Alcohol Use History: Occasional Past Drug Use History: None Reported - Past Family History Mother Additional Family Medical History / Comment(s): from a brain aneurysm in her mid 60s. Father Family Medical History: Myocardial Infarction ([place]) Additional Family Medical History / Comment(s): from a myocardial infarction at age 48. Medications and Allergies Home Medications Medication Instructions Recorded Confirmed Type ALPRAZolam [Xanax] 0.125 mg PO DAILY 12/26/22 12/26/22 History ALPRAZolam [Xanax] 0.25 mg PO HS 12/26/22 12/26/22 History OLANZapine [ZyPREXA] 2.5 mg PO DAILY@1600 12/26/22 12/26/22 History Allergies Allergy/AdvReac Type Severity Reaction Status Date / Time No Known Allergies Allergy Verified 12/26/22 15:50 Physical Exam Vitals: Vital Signs Temp Pulse Resp BP Pulse Ox 12/26/22 18:00 20 148/68 98 12/26/22 16:00 75 16 185/93 98 12/26/22 15:18 78 20 124/74 98 12/26/22 14:18 86 20 150/76 98 12/26/22 14:13 97.5 F L 76 20 152/76 98 Intake and Output 12/26/22 12/26/22 12/26/22 06:59 14:59 22:59 Other: Weight 72.575 kg Results CBC & Chem 7: 12/26/22 14:17 12/26/22 14:17 Labs: Abnormal Lab Results - Last 24 Hours (Table) 12/26/22 12/26/22 Range/Units 14:17 14:17 APTT 21.9 L (22.0-30.0) sec Chloride 109 H (98-107) mmol/L Creatinine 0.43 L (0.52-1.04) mg/dL Glucose 125 H (74-99) mg/dL Alkaline Phosphatase 312 H (38-126) U/L
[2022-12-26] MEDS: ALPRAZolam 0.25 MG TAB PO SCH (21:13)
[2022-12-26] MEDS ORDERED: HYDROcodone/APAP 5-325MG 1 EACH TAB PO PRN (23:16)
[2022-12-26] MEDS: MELATONIN 5 MG TABLET PO SCH (23:28)
[2022-12-27] MEDS ORDERED: LORazepam 1 MG TAB PO STA (07:56)
[2022-12-27] MEDS: ALPRAZolam 0.25 MG TAB PO SCH ×2 (08:53→20:19)
[2022-12-27] MEDS ORDERED: LORazepam 2 MG/ML INJ IV ONE (09:00)
[2022-12-27] MEDS: CYANOCOBALAMIN 1,000 MCG/ML 1 ML VIAL IM SCH (15:29)
[2022-12-27] MEDS: OLANZapine 2.5 MG TAB PO SCH (15:29)
[2022-12-27] MEDS: BENZTROPINE MESYLATE 0.5 MG TAB PO SCH ×2 (15:29→20:19)
--- NOTE | 2022-12-27 15:36 | P.PN ---
Subjective Progress Note Date: 12/27/22 Hospital Course: 77-year-old female with advanced dementia presents the ED for worsening weakness and altered mentation. This has been worsening over the last 2 weeks. In the ED, her vital signs were stable. CBC is unremarkable. Coagulation panel shows a PTT of 21.9. CMP shows chloride of 109, creatinine of 0.43, glucose of 125, alkaline phosphatase 312. Troponin less than 0.012. Urinalysis negative. CXR negative. EKG shows AFib with PVCs ventricular rate of 81. Patient is admitted for placement and workup of dementia. She has low B12 levels. Neurology also consulted. Subjective: Patient seen and examined at bedside. No acute events overnight. Pertinent positives and negatives as discussed above, a complete review of systems was performed and all other systems are negative. Vitals Signs Reviewed. General: nontoxic, no distress, appears at stated age Derm: warm, dry Head: atraumatic, normocephalic, symmetric Eyes: EOMI, no lid lag, anicteric sclera Mouth: no lip lesion, mucus membranes moist Cardiovascular: S1S2 reg, no murmur Lungs: CTA bilateral, no rhonchi, no rales , no accessory muscle use Abdominal: soft, nontender to palpation, no guarding, no appreciable organomegaly Ext: no gross muscle atrophy, no edema, no contractures Neuro: CN II-XI grossly intact, no focal neuro deficits Psych: Alert, not oriented, appropriate affect Data Reviewed Today: Pertinent Labs: B12 189, folic acid 14.3 Imaging: No new imaging Assessment and Plan: Acute metabolic encephalopathy B12 deficiency Advanced dementia -Started on IM B12 repletion -Neurology consulted -Will likely require placement -MRI brain, EEG pending DVT ppx: Lovenox Code status: DNR/DNI Anticipated discharge place: Pending clinical course Anticipated discharge time: pending clinical course Objective - Vital Signs Vital signs: Vital Signs Temp 97.6 F 12/27/22 14:51 Pulse 67 12/27/22 14:51 Resp 14 12/27/22 14:51 BP 158/65 12/27/22 14:51 Pulse Ox 96 12/27/22 14:51 FiO2 Intake & Output 12/26/22 12/27/22 12/27/22 18:59 06:59 18:59 Weight 72.575 kg 72.575 kg Other: Voiding Method Diaper Diaper Incontinent External Catheter # Voids 1 - Labs CBC & Chem 7: 12/26/22 14:17 12/26/22 14:17 Labs: Abnormal Lab Results - Last 24 Hours (Table) 12/26/22 Range/Units 14:17 Vitamin B12 189.0 L (200.0-944.0) pg/mL
[2022-12-27] MEDS: MELATONIN 5 MG TABLET PO SCH (20:19)
[2022-12-28] MEDS: ALPRAZolam 0.25 MG TAB PO SCH ×2 (08:55→20:23)
[2022-12-28] MEDS: BENZTROPINE MESYLATE 0.5 MG TAB PO SCH ×2 (08:57→20:23)
[2022-12-28] MEDS: CYANOCOBALAMIN 1,000 MCG/ML 1 ML VIAL IM SCH (08:57)
[2022-12-28] MEDS: ENOXAPARIN 40 MG/0.4 ML SYRINGE SQ SCH (08:58)
[2022-12-28] MEDS ORDERED: LORazepam 2 MG/ML INJ IV ONE (09:00)
--- NOTE | 2022-12-28 09:39 | P.CNNES ---
History of Present Illness Consult date: 12/27/22 Requesting physician: Abdulaziz Traylor Reason for Consult: Altered mental status History of Present Illness: Patient is a 77-year-old female with history of advanced dementia came to the hospital by ambulance yesterday at 2:02 PM for worsening mental status. Patient's family was present, who provided with a history. Patient has history of dementia for 8 years, which is slowly progressed over years. In the last 2 years, she has to be helped to go to the bathroom, had to be fed, cannot take care of herself. In the last 2 weeks, she has stopped walking, mumbling, not making eye contact, couldn't feed herself, couldn't hold with her left hand. She has required help to go to the bathroom and needed help. She has been more combative, grabs bites when someone tries to help her, and scratches her son. Because of worsening condition, they called the ambulance. As per EMS flow sheet, they came for altered mental status and failure to thrive. Patient is alert and oriented 1, which according to the family has slo wly become her normal. Patient's pupils were equal, lung sounds are clear and equal bilaterally. Family mentions that over the last week patient has not wanted to walk and has seemed weaker. Patient is very confused and disoriented but has not been diagnosed with dementia or Alzheimer's disease. Patient does not appropriately carry on a conversation. According to family patient has become combative and has been hitting them when they try to care for her. Patient has not been walking or moving to normal mobility and family is not sure if it is because she can't or just the level of confusion she is at. EKG showed sinus rhythm. Patient's blood sugar was 160 mg/dL. Blood pressure was 156/88, pulse rate 72 respirations 18, saturation 98%. CBC, PT/PTT normal, electrolytes are normal, renal functions and hepatic panel normal. UA is negative. EKG shows atrial fibrillation with aberrant conduction. Chest x-ray shows no acute process. CT head was limited exam due to extensive artifact and resolution. No obvious midline shift or mass effect. Cannot exclude subtle petechial hemorrhage is on the limitations of this exam. No large intraparenchymal hemorrhage. Moderate degenerative and mild remote ischemic white matter change. I personally reviewed CT head, agree with the findings. No acute process. Patient's home medications include Xanax 0.25 mg at bedtime, Zyprexa 2.5 mg daily and Xanax 0.125 mg daily. Patient's family mentions that patient has not been seen by neurologist the past. They do not remember if patient was ever tried on cognitive enhancing medication. Review of Systems ROS unobtainable: due to mental status Past Medical History Past Medical History: Dementia, Hypertension Additional Past Medical History / Comment(s): Left shoulder, collar bone and ribs broken 2-3 years ago. History of Any Multi-Drug Resistant Organisms: None Reported Past Surgical History: Cholecystectomy, Tonsillectomy Past Anesthesia/Blood Transfusion Reactions: No Reported Reaction Past Psychological History: No Psychological Hx Reported Smoking Status: Former smoker Past Alcohol Use History: Occasional Past Drug Use History: None Reported - Past Family History Mother Additional Family Medical History / Comment(s): from a brain aneurysm in her mid 60s. Father Family Medical History: Myocardial Infarction ([place]) Additional Family Medical History / Comment(s): from a myocardial infarction at age 48. Medications and Allergies Home Medications Medication Instructions Recorded Confirmed Type ALPRAZolam [Xanax] 0.125 mg PO DAILY 12/26/22 12/26/22 History ALPRAZolam [Xanax] 0.25 mg PO HS 12/26/22 12/26/22 History OLANZapine [ZyPREXA] 2.5 mg PO DAILY@1600 12/26/22 12/26/22 History Allergies Allergy/AdvReac Type Severity Reaction Status Date / Time No Known Allergies Allergy Verified 12/26/22 15:50 Physical Examination - Vital Signs Vital Signs: Vital Signs Temp Pulse Pulse Resp BP BP BP 12/27/22 09:59 71 152/56 12/27/22 08:40 97.6 F 61 16 180/64 12/27/22 00:45 98.3 F 63 12 123/71 12/26/22 20:44 98.1 F 86 18 153/63 12/26/22 18:00 20 148/68 12/26/22 16:00 75 16 185/93 12/26/22 15:18 78 20 124/74 12/26/22 14:18 86 20 150/76 12/26/22 14:13 97.5 F L 76 20 152/76 Pulse Ox 12/27/22 09:59 96 12/27/22 08:40 95 12/27/22 00:45 98 12/26/22 20:44 97 12/26/22 18:00 98 12/26/22 16:00 98 12/26/22 15:18 98 12/26/22 14:18 98 12/26/22 14:13 98 Intake and Output 12/26/22 12/27/22 12/27/22 22:59 06:59 14:59 Other: Voiding Method Diaper Diaper Diaper Incontinent Incontinent External Catheter # Voids 1 1 Weight 72.575 kg Patient is an elderly female, who is laying in the bed, with her eyes closed. Patient is in no acute distress. Patient is encephalopathic, , mumbling, not making sense. Patient would not follow directions. Speech is mumbling. Patient has bilateral positive palmomental reflex. She mostly keeps her eyes closed, but does open it on calling her name. Attention, concentration and fund of knowledge is severely limited. On cranial nerve examination, pupils are equal, round and reacting to light. Visual plascencia could not be tested, as she would not comply. Extraocular muscles are intact, as she does move her eyes to either side. Face is symmetric, did not protrude her tongue. Cannot assess lower cranial nerves because of noncooperation. On muscle strength testing, patient is holding her arms rigid with her body. When I tried to extend her arm, patient becomes somewhat edgy, and resists. She mumbles, appears unhappy with any touch. Patient's daughter admits that patient does not want to be stopped test at all. She can become aggressive. Deep tendon reflexes are symmetric 1+ at the biceps, 1+ brachioradialis, 2+ at the knees and plantars are upgoing bilaterally. Sensory to touch cannot be assessed. Cerebellar function cannot be assessed. Tone is significantly increased in bilateral upper limbs. Patient has some degree of paratonia. Gait deferred.. On general examination, there is no carotid bruit or murmur, S1-S2 audible. Chest is clear on consultation. Abdomen is soft nontender. No organomegaly, bowel sounds present. Peripheral pulses are present. No edema. Results - Laboratory Findings CBC and BMP: 12/26/22 14:17 08/21/23 14:17 Abnormal Lab Findings: Abnormal Labs 12/26/22 12/26/22 12/26/22 14:17 14:17 14:17 APTT 21.9 L Chloride 109 H Creatinine 0.43 L Glucose 125 H Alkaline Phosphatase 312 H Vitamin B12 189.0 L Assessment and Plan Assessment: * Advanced dementia with behavioral disturbance, progressively getting worse. Probable Alzheimer's dementia. 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 Patient has been on Zyprexa for 6 months. * Rule out CVA * Vitamin B12 deficiency Plan: * Patient has progressive dementia. Family is considering hospice care at this point. However they want to rule out any reversible cause. * Patient will undergo MRI of the brain * Check EEG to rule out encephalopathy versus epileptiform activity * B12 189, folate 14.3, TSH 0.94. Patient started on vitamin B12 replacement. 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 Patient has been on Zyprexa for behavioral disturbance. This will be continued, but we will start Cogentin 0.5 mg twice a day from today for possible extrapyramidal side effects. * Neurology will follow. Discussed with family members and nursing staff in detail. Thank you for the consult.
[2022-12-28] MEDS: FAMOTIDINE 20 MG/2 ML VIAL IV SCH ×2 (13:30→20:23)
[2022-12-28 13:46] LABS: African American GFR (CKD) >90 (>60 ml/min/1.73 sqM); Anion Gap 6 mmol/L; Blood Urea Nitrogen 20 mg/dL (7-17); Calcium 8.7 mg/dL (8.4-10.2); Carbon Dioxide 22 mmol/L (22-30); Chloride 110 mmol/L (98-107); Glucose 114 mg/dL (74-99); Magnesium 2.1 mg/dL (1.6-2.3); Non-African American GFR(CKD) >90 (>60 ml/min/1.73 sqM); Potassium 4.3 mmol/L (3.5-5.1); Sodium 138 mmol/L (137-145)
--- NOTE | 2022-12-28 15:48 | P.PN ---
Subjective Progress Note Date: 12/28/22 Hospital Course: 77-year-old female with advanced dementia presents the ED for worsening weakness and altered mentation. This has been worsening over the last 2 weeks. In the ED, her vital signs were stable. CBC is unremarkable. Coagulation panel shows a PTT of 21.9. CMP shows chloride of 109, creatinine of 0.43, glucose of 125, alkaline phosphatase 312. Troponin less than 0.012. Urinalysis negative. CXR negative. EKG shows AFib with PVCs ventricular rate of 81. Patient is admitted for placement and workup of dementia. She has low B12 levels. Neurology also consulted. Subjective: Patient seen and examined at bedside. No acute events overnight. Pertinent positives and negatives as discussed above, a complete review of systems was performed and all other systems are negative. Vitals Signs Reviewed. General: nontoxic, no distress, appears at stated age Derm: warm, dry Head: atraumatic, normocephalic, symmetric Eyes: EOMI, no lid lag, anicteric sclera Mouth: no lip lesion, mucus membranes moist Cardiovascular: S1S2 reg, no murmur Lungs: CTA bilateral, no rhonchi, no rales , no accessory muscle use Abdominal: soft, nontender to palpation, no guarding, no appreciable organomegaly Ext: no gross muscle atrophy, no edema, no contractures Neuro: CN II-XI grossly intact, no focal neuro deficits Psych: Alert, not oriented, appropriate affect Data Reviewed Today: Pertinent Labs: Potassium 4.3, creatinine 0.5, BUN 20 Imaging: No new imaging Assessment and Plan: Acute metabolic encephalopathy B12 deficiency Advanced dementia Prerenal azotemia -on IM B12 repletion -Personally discussed management with neurology -Plan was to get brain MRI, patient unable to lie still -Patient may have drug-induced Parkinson's secondary to Zyprexa, started on Cogentin per neurology -Family considering hospice if no reversible cause identified -EEG report pending -started on IV fluids DVT ppx: Lovenox Code status: DNR/DNI Anticipated discharge place: Pending clinical course Anticipated discharge time: pending clinical course Objective - Vital Signs Vital signs: Vital Signs Temp 97.4 F L 12/28/22 14:05 Pulse 84 12/28/22 14:05 Resp 16 12/28/22 14:05 BP 146/65 12/28/22 14:05 Pulse Ox 84 L 12/28/22 14:05 FiO2 21 12/28/22 07:40 Intake & Output 12/27/22 12/28/22 12/28/22 18:59 06:59 18:59 Output Total 100 200 Balance -100 -200 Output: Urine 100 200 Other: Voiding Method Diaper Diaper Diaper External Catheter External Catheter External Catheter # Voids 1 1 - Labs CBC & Chem 7: 12/26/22 14:17 12/28/22 12:45 Labs: Abnormal Lab Results - Last 24 Hours (Table) 12/28/22 Range/Units 12:45 Chloride 110 H (98-107) mmol/L BUN 20 H (7-17) mg/dL Creatinine 0.50 L (0.52-1.04) mg/dL Glucose 114 H (74-99) mg/dL
--- NOTE | 2022-12-28 15:50 | P.PN ---
Subjective Progress Note Date: 12/28/22 Patient is laying comfortably in the bed. She is not as stiff today. Not as rigid. Patient mumbles. Patient's [id number] was present. Other family members are talking to hospice. Objective - Vital Signs Vital signs: Vital Signs Temp 97.4 F L 12/28/22 14:05 Pulse 84 12/28/22 14:05 Resp 16 12/28/22 14:05 BP 146/65 12/28/22 14:05 Pulse Ox 84 L 12/28/22 14:05 FiO2 21 12/28/22 07:40 Intake & Output 12/27/22 12/28/22 12/28/22 18:59 06:59 18:59 Output Total 100 200 Balance -100 -200 Output: Urine 100 200 Other: Voiding Method Diaper Diaper Diaper External Catheter External Catheter External Catheter # Voids 1 1 - Exam Patient mumbles. Not able to tell me her own name, or her daughter in law name. Patient apparently remembers only "core family members" but not relatives were not seen her. tone is better. Patient is not as rigid/stiff. No tremors at rest. She appears disheveled. - Labs CBC & Chem 7: 12/26/22 14:17 12/28/22 12:45 Labs: Abnormal Lab Results - Last 24 Hours (Table) 12/28/22 Range/Units 12:45 Chloride 110 H (98-107) mmol/L BUN 20 H (7-17) mg/dL Creatinine 0.50 L (0.52-1.04) mg/dL Glucose 114 H (74-99) mg/dL Assessment and Plan Assessment: * Advanced dementia with behavioral disturbance, progressively getting worse. Probable Alzheimer's dementia. 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 Patient has been on Zyprexa for 6 months. * No evidence of CVA. * Vitamin B12 deficiency Plan: * Patient has progressive dementia. Family is considering hospice care at this point. * MRI of the brain cannot be performed because patient would not cooperate. Would avoid heavy sedation. * EEG revealed some disorganization in the ground slowing of mild to moderate degree suggestive of generalized cerebral dysfunction as can been seen with encephalopathy. No epileptiform activity was seen. * B12 189, folate 14.3, TSH 0.94. Patient started on vitamin B12 replacement. 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 Patient has been on Zyprexa for behavioral disturbance. Continue Cogentin 0.5 mg twice a day. Patient is slightly better regarding rigidity. No obvious side effects noted. * Family actively talking to hospice. Discussed with primary physician. No indication for cognitive enhancing medication at this time. * Please call neurology if any other concerns.
[2022-12-28] MEDS: SODIUM CHLORIDE 0.9% 1,000 ML IV SCH (16:00)
[2022-12-28] MEDS: OLANZapine 2.5 MG TAB PO SCH (18:09)
[2022-12-28] MEDS: MELATONIN 5 MG TABLET PO SCH (20:23)
[2022-12-29] MEDS: SODIUM CHLORIDE 0.9% 1,000 ML IV SCH (06:26)
[2022-12-29 08:16] VITALS: BP 81/58; PULSE 58; RESP 16; TEMP 97.5
[2022-12-29] MEDS: ENOXAPARIN 40 MG/0.4 ML SYRINGE SQ SCH (08:18)
[2022-12-29] MEDS: ALPRAZolam 0.25 MG TAB PO SCH (08:19)
[2022-12-29] MEDS: BENZTROPINE MESYLATE 0.5 MG TAB PO SCH (08:21)
[2022-12-29] MEDS: CYANOCOBALAMIN 1,000 MCG/ML 1 ML VIAL IM SCH (08:22)
[2022-12-29] MEDS: FAMOTIDINE 20 MG/2 ML VIAL IV SCH (08:23)
--- NOTE | 2022-12-29 09:17 | EEG ---
ELECTROENCEPHALOGRAM REPORT PREAMBLE: This is a 77-year-old female with dementia, has developed worsening mental status and rigidity. This study is performed to evaluate for any encephalopathy, rule out epileptiform activity. EEG FINDINGS: This is a 21-channel digital EEG recorded with video component, utilizing 10/20 international system with referential and bipolar montages. Background consists of moderately well-developed and not well regulated, somewhat low amplitude mixed theta with some delta activity seen in bihemispheric region. Background does not seem to be reactive to eye opening or closing. Photic stimulation was not performed. Different stages of sleep were not clearly seen. No focal or generalized epileptiform activity was seen. IMPRESSION: This is an abnormal EEG due to background slowing of moderate degree. This is suggestive of generalized cerebral dysfunction as can be seen with toxic metabolic encephalopathy or related to diffuse structural brain abnormality. Clinical correlation is recommended. No epileptiform activity was seen. MMODL / IJN: [id number] / MTDD
--- NOTE | 2022-12-29 11:04 | P.DS ---
Providers Date of admission: 12/26/22 17:21 Expected date of discharge: 12/29/22 Attending physician: Rober Florian MD Consults: 12/26/22 17:21 Consult Physician Routine Consulting Provider: Hedy Tam Consult Reason/Comments: ams Do you want consulting provider notified?: Yes Primary care physician: Physician Nonstaff Hospital Course: Discharge Diagnosis: Acute metabolic encephalopathy B12 deficiency Advanced dementia Prerenal azotemia Hospital Course: 77-year-old female with advanced dementia presents the ED for worsening weakness and altered mentation. This has been worsening over the last 2 weeks. In the ED, her vital signs were stable. CBC is unremarkable. Coagulation panel shows a PTT of 21.9. CMP shows chloride of 109, creatinine of 0.43, glucose of 125, alkaline phosphatase 312. Troponin less than 0.012. Urinalysis negative. CXR negative. EKG shows AFib with PVCs ventricular rate of 81. Patient is admitted for placement and workup of dementia. She has low B12 levels. Started on B12 supplements. Neurology also consulted. EEG did not show any epileptiform discharges. Patient unable to complete MRI. Family opted for hospice. Patient being discharged to hospice facility. Patient seen and examined at bedside. Vital signs reviewed and stable. General: nontoxic, no distress, appears at stated age Derm: warm, dry Head: atraumatic, normocephalic, symmetric Eyes: EOMI, no lid lag, anicteric sclera Mouth: no lip lesion, mucus membranes moist Cardiovascular: S1S2 reg, no murmur Lungs: CTA bilateral, no rhonchi, no rales , no accessory muscle use Abdominal: soft, nontender to palpation, no guarding, no appreciable organomegaly Ext: no gross muscle atrophy, no edema, no contractures Neuro: CN II-XI grossly intact, no focal neuro deficits Psych: Alert, not oriented, appropriate affect A total of 33 minutes of time were spent preparing this complex discharge summary. Patient was discharged on 12/29/22 at 11:02. Patient Condition at Discharge: Stable Plan - Discharge Summary New Discharge Prescriptions: New Benztropine Mesylate [Cogentin] 0.5 mg PO BID #90 tab Melatonin 5 mg PO HS #60 tab Famotidine [Pepcid] 20 mg PO BID #90 tablet Cyanocobalamin [Vitamin B-12] 1,000 mcg PO DAILY #60 tablet Continue ALPRAZolam [Xanax] 0.25 mg PO HS OLANZapine [ZyPREXA] 2.5 mg PO DAILY@1600 ALPRAZolam [Xanax] 0.125 mg PO DAILY Discharge Medication List ALPRAZolam [Xanax] 0.125 mg PO DAILY 12/26/22 [History] ALPRAZolam [Xanax] 0.25 mg PO HS 12/26/22 [History] OLANZapine [ZyPREXA] 2.5 mg PO DAILY@1600 12/26/22 [History] Benztropine Mesylate [Cogentin] 0.5 mg PO BID #90 tab 12/29/22 [Rx] Cyanocobalamin [Vitamin B-12] 1,000 mcg PO DAILY #60 tablet 12/29/22 [Rx] Famotidine [Pepcid] 20 mg PO BID #90 tablet 12/29/22 [Rx] Melatonin 5 mg PO HS #60 tab 12/29/22 [Rx] Follow up Appointment(s)/Referral(s): None,Stated [REFERRING] - 1-2 days Patient Instructions/Handouts: Dementia (GEN) Discharge Disposition: DISCH TO HOSPICE MED FACILTY
== END 2022-12-29 13:49 | disposition hospice, inpatient (51) ==
LOC: EC 14:02 → 6NMEDSUR 17:21
PROVIDERS: ADMIT Family Medicine; ATTEND Family Medicine
DX: G93.41 Metabolic encephalopathy (principal); F03.918 Unspecified dementia, unspecified severity, with other behavioral disturbance; E53.8 Deficiency of other specified B group vitamins; R79.89 Other specified abnormal findings of blood chemistry; G20 Parkinson's disease; I10 Essential (primary) hypertension; Z87.891 Personal history of nicotine dependence; Z79.899 Other long term (current) drug therapy; Z66 Do not resuscitate
CPT/HCPCS: 96376 ×2; 96372 ×2; 96374; 96375; 99285; 36415; 94760 ×2; 95816; 93005; 80053; 80048; 84443; 82607; 82746; 83735; 84484; 85025; 85610; 85730; 81003; 71046; 70450; G0378 ×4; J2060; J3420 ×2; J1650; J3490 ×2